=== PATIENT | female | born 1935 | race Caucasian/White ===

== ENCOUNTER 2017-01-12 19:43 | Inpatient (IN) | payer MEDICARE, OTHER ==
[~2017-01-12] VITALS: Ht 157.5 cm; Wt 58.0 kg
[~2017-01-12 19:43] MED LIST: AMLODIPINE PO; ASPI-664 PO; FLONASE; LORA10TA PO; LOVAZA PO; NEXIUM PO; OLME1TAB28 PO; PROPANOLOL; ZOCOR PO; [UNRECOGNIZED DRUG - CODE] PO
[2017-01-12] MEDS ORDERED: SOD CHLORIDE 0.9% 1,000 ML IV STA (20:31)
[2017-01-12 20:49] LABS: BASOPHILS % 0.5 % (0.0-2.0); EOSINOPHILS % 0.3 % (0.0-7.0); HEMATOCRIT 41.1 % (37.0-47.0); HEMOGLOBIN 13.8 g/dl (12.0-16.0); LYMPHOCYTES # 1.4 10^3/ul (0.8-2.9); LYMPHOCYTES % 15.6 % (15.0-51.0); MEAN CORPUSCULAR HEMOGLOBIN 29.9 pg (29.0-33.0); MEAN CORPUSCULAR HGB CONC 33.6 g/dl (32.0-37.0); MEAN CORPUSCULAR VOLUME 89.2 fl (82.0-101.0); MEAN PLATELET VOLUME 11.1 fl (7.4-10.4); MONOCYTES % 11.9 % (0.0-11.0); NEUTROPHIL # 6.2 10^3/ul (1.6-7.5); NEUTROPHILS % 71.2 % (39.0-77.0); PLATELET COUNT 218 10^3/UL (140-415); RED BLOOD COUNT 4.61 10^6/ul (4.20-5.40); RED CELL DISTRIBUTION WIDTH 14.6 % (11.5-14.5); WHITE BLOOD COUNT 8.7 10^3/ul (4.8-10.8)
[2017-01-12 21:04] LABS: INR 1.16; PROTIME 14.9 Sec (12.2-14.2); PT RATIO 1.2
[2017-01-12 21:05] LABS: PARTIAL THROMBOPLASTIN TIME 30.2 Sec (25.0-35.0)
[2017-01-12 21:17] LABS: ALANINE AMINOTRANSFERASE 71 IU/L (13-69); ALBUMIN/GLOBULIN RATIO 1.29; ALKALINE PHOSPHATASE 221 IU/L (42-121); ANION GAP 20 (8-16); ASPARTATE AMINO TRANSFERASE 117 IU/L (15-46); BILIRUBIN,INDIRECT 1.4 mg/dl (0-1.1); BILIRUBIN,TOTAL 1.5 mg/dl (0.2-1.3); BLOOD UREA NITROGEN 18 mg/dl (7-20); CALCIUM 9.2 mg/dl (8.4-10.2); CARBON DIOXIDE 23 mmol/L (21-31); CHLORIDE 100 mmol/L (97-110); GLUCOSE 104 mg/dl (70-220); POTASSIUM 3.7 mmol/L (3.5-5.1); SODIUM 139 mmol/L (135-144); TOTAL PROTEIN 7.1 g/dl (6.1-8.1)
[2017-01-12 21:29] LABS: TROPONIN-I < 0.012 ng/ml (0.00-0.12)
[2017-01-12] MEDS ORDERED: ERGO500037 PO (21:45)
[2017-01-12] MEDS ORDERED: LORA0.5T PO (21:45)
[2017-01-12] MEDS ORDERED: ISOS30TA5 PO (21:46)
[2017-01-12] MEDS ORDERED: VALS160T20 PO (21:47)
[2017-01-12] MEDS ORDERED: NITR12SP TL (21:47)
[2017-01-12] MEDS ORDERED: DULO30CA47 PO (21:49)
[2017-01-12] MEDS ORDERED: OMEG1CAP2 PO (21:50)
[2017-01-12 22:20] VITALS: TEMP 98.3
--- NOTE | 2017-01-12 23:41 | RADRPT ---
PROCEDURE: Chest. CLINICAL INDICATION: Chest pain. TECHNIQUE: Single frontal view of the chest was obtained. COMPARISON: 07/20/2013. FINDINGS: The cardiac silhouette is enlarged. The aortic arch is calcified. There is no focal consolidation, vascular congestion or pleural effusion. There is no pneumothorax. There is an old fracture of the right posterior lateral seventh rib. IMPRESSION: Mild cardiomegaly and aortic atherosclerosis. .Jorge Farias MD, MD Date Time Electronically viewed and signed by .Jorge Farias MD, on 01/12/2017 23:41 .T/
--- NOTE | 2017-01-12 23:46 | RADRPT ---
PROCEDURE: CT Brain without contrast. CLINICAL INDICATION: Headache. TECHNIQUE: A CT of the brain was performed on a multislice detector CT scanner utilizing axial sec tions from the skull base through the vertex without contrast. Images were reviewed on a [employer] PACS workstation. Exam CTDlvol = 44 mGy and DLP = 630 mGy-cm. One of the following 3 dose red uction techniques were used: Automated exposure control; adjustment of the mA and/or kV according to patient size; or use of iterative reconstruction technique. COMPARISON: None available FINDINGS: There is age appropriate generalized peripheral atrophy. Ventricles are symmetric and mildly promin ent, suggesting component of communicating hydrocephalus. There is no midline shift. There is conf luent supratentorial periventricular and subcortical white matter hypodensities. There is no defini te acute stroke. There is no mass lesion. There is no intracranial hemorrhage or abnormal extra-ax ial fluid collection. Visualized paranasal sinuses are clear. IMPRESSION: 1. No acute stroke or hemorrhage. 2. Nonspecific white matter changes most commonly seen with microvascular ischemic disease. 3. Generalized atrophy. Slightly disproportionate degree of diffuse ventricular enlargement relati ve atrophy white matter disease. A component of communicating hydrocephalus cannot be excluded. RPTAT: HMVK .Evans Griffin MD, Date Time Electronically viewed and signed by .Evans Griffin MD, on 01/12/2017 23:46 .K/
[2017-01-13] MEDS ORDERED: HALOPERIDOL 5 MG INJ IV ONE (00:30)
--- NOTE | 2017-01-13 00:44 | RADRPT ---
PROCEDURE: US Abdomen (right upper quadrant). CLINICAL INDICATION: Pain. TECHNIQUE: Multiple real-time longitudinal and transverse images of the right upper quadrant of th e abdomen were acquired utilizing a curved array transducer. Images were reviewed on a high-resoluti on PACS workstation. COMPARISON: None FINDINGS: The liver is enlarged measuring 19.2 cm. Liver is diffusely heterogeneous with appearance suggestiv e of a numerous focal intrahepatic masses. A dominant mass in the right lobe liver 9.2 x 8.3 cm is present. The gallbladder is not visualized. No intra or extrahepatic biliary dilatation is seen. T he common bile duct measures 3.9 mm in maximal dimension. Pancreas is obscured by bowel gas. No fr ee fluid is identified. The right kidney measures 10.8 cm in length. There is normal echogenicity within the right kidney. There is no perinephric fluid collection. No hydronephrosis, mass, or calculus is seen. IMPRESSION: 1. Large heterogeneous liver appearance suggests multiple masses, largest 9.2 x 0.3 cm. Appearance is concerning for metastatic disease. Correlation contrast enhanced CT of the abdomen pelvis is arlene mmended. 2. Gallbladder not identified. No evidence for biliary obstruction. 3. Pancreas not visualized. RPTAT: HMVK .Evans Griffin MD, Date Time Electronically viewed and signed by .Evans Griffin MD, on 01/13/2017 00:44 .K/
[2017-01-13] MEDS ORDERED: LORAZEPAM 2 MG INJ IV ONE (01:00)
[2017-01-13] MEDS ORDERED: SOD CHLORIDE 0.9% 100 ML ONE (01:10)
[2017-01-13] MEDS ORDERED: IOHEXOL 300MG/ML 150 ML BTL ONE (01:10)
--- NOTE | 2017-01-13 01:41 | RADRPT ---
PROCEDURE: CT abdomen and pelvis with intravenous contrast. CLINICAL INDICATION: Pain. TECHNIQUE: CT of the abdomen/pelvis was performed utilizing axial images with reconstructions in s agittal and coronal planes after uneventful administration of 100 cc Omnipaque 300. The administered radiation dose is CTDI 17 mGy, DLP 983 mGy-cm. COMPARISON: No pertinent prior examinations were submitted for comparison. FINDINGS: Visualized Chest: There is moderate cardiomegaly. Coronary artery and cardiac valvular calcificatio ns are noted. A mildly enlarged pericardial lymph node is noted anteriorly. Abdomen: The spleen, gallbladder,and adrenal glands are unremarkable. Numerous masses are noted throughout the liver with enlargement of the liver. There is dilatation of the pancreatic duct throughout the distal body and tail of the pancreas. There is atrophy of the distal body and tail of the pancreas a s well. There is dilatation of the common bile duct measuring up to 10 mm. The kidneys are without hydronephrosis. No definite urinary calculi are seen. A small, partially ex ophytic left renal cyst is noted. Some parapelvic cysts are noted within the left kidney is well. There is no evidence of bowel obstruction. The appendix is normal. No intra-abdominal free air is seen. Numerous diverticula are noted along the descending and sigmoid colon without evidence of div erticulitis. There is no evidence of intra-abdominal adenopathy or free fluid. Vascular calcifications are noted within the aorta and its branches. Pelvis: There is no evidence of pelvic adenopathy. The uterus and ovaries are without enlargement. The uri nary bladder is unremarkable. There is trace pelvic free fluid. Osseous structures: Unremarkable. IMPRESSION: Numerous large and small liver lesions most compatible with metastatic disease. Colonic diverticulosis. Left renal cysts. Atrophy and dilatation of the pancreatic duct within the distal body and tail, possibly due to chron ic pancreatitis. Dilated common bile duct. RPTAT: HIKT .Daniel Murillo MD, Date Time Electronically viewed and signed by .Daniel Murillo MD, on 01/13/2017 01:41 .T/
--- NOTE | 2017-01-13 02:05 | ERA ---
ER Documentation Chief Complaint Date/Time DATE: 01/13/17 TIME: 02:03 Chief Complaint weakness progressing x 10 days, worse today, adds c/o CP upon EMS arrival HPI -year-old female with progressive weakness for the past 10 days per the family at the bedside. Also complaining of intermittent abdominal pain and vomiting. Patient is demented at baseline. History is per family at the bedside. ROS All systems reviewed and are negative except as per history of present illness. Medications Home Meds Reported Medications [place]-3 Acid Ethyl Esters (Lovaza) 1 Gm Capsule, 2 GM PO BID, CAP 01/12/17 Duloxetine Hcl* (Duloxetine Hcl*) 30 Mg Capsule.dr, 30 MG PO DAILY, #30 CAP 01/12/17 Valsartan* (Diovan*) 160 Mg Tablet, 160 MG PO DAILY, TAB 01/12/17 Nitroglycerin* (Nitroglycerin* [place]) 400 Mcg/[place], 1 SPRAY TL Q5M Y for CHEST PAIN, SPRAY 01/12/17 Isosorbide Mononitrate* (Isosorbide Mononitrate*) 30 Mg Tab.er.24h, 30 MG PO BID , TAB 01/12/17 Lorazepam* (Lorazepam*) 0.5 Mg Tablet, 0.5 MG PO HS Y for ANXIETY, TAB 01/12/17 Ergocalciferol (Vitamin D2) (VITAMIN D2) 50,000 Unit Capsule, 92088 UNIT PO Q7D , CAP 01/12/17 Discontinued Reported Medications Calcium Carbonate/Vitamin D3 ([place] Calcium 500+D Tab) 1 Tab Tablet, 1 TAB PO BID 07/20/13 [Flonase] No Conflict Check 07/20/13 [Propanolol] No Conflict Check, 80 MG DAILY 07/20/13 [Lovaza] No Conflict Check, 1 TAB PO BID 07/20/13 Olmesartan-Hydrochlorothiazide (Benicar HCT) 1 Tab Tablet, 1 TAB PO DAILY 07/20/13 Aspirin (Aspirin) 81 Mg Tablet.dr, 81 MG PO DAILY 07/20/13 [Amlodipine] No Conflict Check, 10 MG PO DAILY 07/20/13 [Nexium] No Conflict Check, 40 MG PO DAILY 07/20/13 [Zocor] No Conflict Check, 20 MG PO DAILY 07/20/13 Loratadine (Loratadine) 10 Mg Tablet, 10 MG PO 2/13/14 Allergies Allergies: Coded Allergies: No Known Allergy (Unverified , 01/12/17) PMhx/Soc History of Surgery: Yes (HOLECYSTECTOMY) Anesthesia Reaction: No Hx Neurological Disorder: No Hx Respiratory Disorders: No Hx Cardiac Disorders: Yes (htn, afib) Hx Psychiatric Problems: No Hx Miscellaneous Medical Probl: No Hx Alcohol Use: No Hx Substance Use: No Hx Tobacco Use: No Smoking Status: Never smoker Physical Exam Vitals Vital Signs Date Time Temp Pulse Resp B/P Pulse Ox O2 Delivery O2 Flow Rate FiO2 01/13/17 01:58 89 17 129/88 99 Room Air 01/13/17 01:03 97.8 104 17 133/98 99 01/13/17 00:11 97 17 132/110 99 Room Air 01/12/17 22:20 98.3 78 17 150/78 100 Room Air 01/12/17 20:01 98.3 89 20 129/79 96 Physical Exam Const: [] Head: Atraumatic Eyes: Normal Conjunctiva ENT: Normal External Ears, Nose and Mouth. Neck: Full range of motion..~ No meningismus. Resp: Clear to auscultation bilaterally Cardio: Regular rate and rhythm, no murmurs Abd: Soft, non tender, non distended. Normal bowel sounds Skin: No petechiae or rashes Back: No midline or flank tenderness Ext: No cyanosis, or edema Neur: Awake and alert Psych: Normal Mood and Affect Result Diagram: 01/12/17 2030 01/12/17 2030 Results 24 hrs Laboratory Tests Test 01/12/17 20:30 White Blood Count 8.710^3/ul Red Blood Count 4.6110^6/ul Hemoglobin 13.8g/dl Hematocrit 41.1% Mean Corpuscular Volume 89.2fl Mean Corpuscular Hemoglobin 29.9pg Mean Corpuscular Hemoglobin Concent 33.6g/dl Red Cell Distribution Width 14.6% Platelet Count 95592^3/UL Mean Platelet Volume 11.1fl Neutrophils % 71.2% Lymphocytes % 15.6% Monocytes % 11.9% Eosinophils % 0.3% Basophils % 0.5% Nucleated Red Blood Cells % 0.0/100WBC Neutrophils # 6.210^3/ul Lymphocytes # 1.410^3/ul Monocytes # 1.010^3/ul Eosinophils # 0.010^3/ul Basophils # 0.010^3/ul Nucleated Red Blood Cells # 0.010^3/ul Prothrombin Time 14.9Sec Prothrombin Time Ratio 1.2 INR International Normalized Ratio 1.16 Activated Partial Thromboplast Time 30.2Sec Sodium Level 139mmol/L Potassium Level 3.7mmol/L Chloride Level 100mmol/L Carbon Dioxide Level 23mmol/L Anion Gap 20 Blood Urea Nitrogen 18mg/dl Creatinine 0.70mg/dl Glucose Level 104mg/dl Lactic Acid Level 1.7mmol/L Calcium Level 9.2mg/dl Total Bilirubin 1.5mg/dl Direct Bilirubin 0.10mg/dl Indirect Bilirubin 1.4mg/dl Aspartate Amino Transf (AST/SGOT) 117IU/L Alanine Aminotransferase (ALT/SGPT) 71IU/L Alkaline Phosphatase 221IU/L Troponin I < 0.012ng/ml Total Protein 7.1g/dl Albumin 4.0g/dl Globulin 3.10g/dl Albumin/Globulin Ratio 1.29 Lipase 567U/L Current Medications Medications (Trade) Dose Ordered Sig/Deyanira Route PRN Reason Start Time Stop Time Status Last Admin Dose Admin Sodium Chloride (NS) 1,000 ml @ 1,000 mls/hr Q1H STAT IV 01/12/17 20:31 01/12/17 21:30 DC 01/12/17 21:03 Haloperidol (Haldol) 5 mg ONCE ONCE IV 01/13/17 00:30 01/13/17 00:31 DC 01/13/17 00:25 Lorazepam 2 mg 2 mg ONCE ONCE IV 01/13/17 01:00 01/13/17 01:01 DC 01/13/17 00:58 Sodium Chloride (NS) 100 ml @ ud STK-MED ONCE .ROUTE 01/13/17 01:10 01/13/17 01:11 DC 01/13/17 01:30 Iohexol (Omnipaque 300mg/ ml) 150 ml STK-MED ONCE .ROUTE 01/13/17 01:10 01/13/17 01:11 DC 01/13/17 01:30 Procedures/MDM EKG: Rate/Rhythm: [Normal Sinus Rhythm] QRS, ST, T-waves: [No changes consistent w/ acute ischemia] Impression: [No evidence of ischemia or arrhythmia] Chest X-ray 1V Interpreted by me: Soft Tissue: No acute abnormalities Bones: No acute abnormalities Mediastinum/Cardiac Silhouette/Lungs: [No acute abnormalities] Medical decision-makin-year-old female who has multiple metastatic lesions in her liver causing biliary obstruction. Patient will be admitted to Dr. Parsons who is on-call. Departure Diagnosis: Primary Impression: Metastatic cancer Additional Impression: Hyperbilirubinemia Condition: Serious KULDIP PRESTON Jan 13, 2017 02:05
[2017-01-13] MEDS ORDERED: ACETAMINOPHEN 325 MG TAB PO PRN (02:30)
[2017-01-13 02:45] VITALS: BP 153/75; PULSE 81; RESP 17
[2017-01-13 03:27] VITALS: BP 153/75; RESP 20
[2017-01-13] MEDS: D5W-0.45 NACL + KCL 40 MEQ 1,000 ML IV SCH ×2 (06:01→16:07)
[2017-01-13 08:00] VITALS: BP 151/69; RESP 19
[2017-01-13] MEDS: FISH OIL 1,000 MG CAP PO SCH ×2 (11:00→20:49)
[2017-01-13] MEDS: DULOXETINE 30 MG CAP DR PO SCH (11:00)
[2017-01-13] MEDS: VALSARTAN 160 MG TAB PO SCH (11:00)
[2017-01-13] MEDS: ISOSORBIDE MONONITRATE(SR)30 MG TAB PO SCH ×2 (11:00→20:49)
--- NOTE | 2017-01-13 11:35 | HP ---
Date/Time of Note Date/Time of Note DATE: 01/13/17 TIME: 11:14 Assessment/Plan VTE Prophylaxis VTE Prophylaxis Intervention: SCD's Lines/Catheters IV [facility] Type ([facility] Peripheral IV Urinary Cath still in place: Yes Reason Cath still needed: other (indicate) (Monitor urine output) Assessment/Plan Assessment/Plan 81-year-old female with: 1. Poor p.o. intake, generalized weakness, epigastric/abdominal pain with finding on CAT scan of pancreatitis, now a pancreatic duct, common bile duct dilatation and multiple liver masses. Patient already status post cholecystectomy. I will have a GI consult and clarify if MRCP is needed but looks like patient most likely needs a ERCP with biopsy. Given the concerns for metastatic disease, CAT scan of the chest has been ordered. CAT scan of the head does not show any masses. 2. Dehydration: Again difficult p.o. intake this morning, agree with IV fluids for now. 3. Pancreatitis based on CAT scan findings and also elevated lipase. Patient on n.p.o. status except for medications for now. However she is observed to choke on the fluids, she may need to go full n.p.o., some of her medication to be converted to IV 4. Hypertension: We will start as needed medications if cannot tolerate any p.o. 5. Hyperlipidemia: Medications on hold 6. Mild dementia: Likely slightly exacerbated currently with acute findings. Continue outpatient medication as tolerated. Monitor. Prophylaxis: SCDs for DVT prophylaxis, Pepcid for GI prophylaxis Disposition: GI consult, follow-up CAT scan of the chest to rule out metastatic disease to the lung. HPI/ROS Admit Date/Time Admit Date/Time Jan 13, 2017 at 02:01 Hx of Present Illness Chief complaint: Generalized weakness, abdominal pain History of presenting illness: This is a 81-year-old female with mild dementia, hypertension no previous history of any malignancies who was brought into the emergency department by her son with reported increased generalized weakness over the past 10 days now, decreased p.o. intake episodes of nausea and vomiting over the past few days. The patient herself is slightly confused, she is [place]-speaking only. The son at the bedside is giving the history of presenting illness. According to the son the patient has been in her usual state of health until approximately 10 days ago, she started having a generalized weakness that has worsened over the past 10 days to a point where she is almost bedbound. She has decreased p.o. intake, she eats very small amounts and if forced to eat she started being nauseous and throwing up. She had one episodes of emesis which was nonbloody at home. She was complaining of pain around her upper upper abdomen and or chest at home according to the son, it was difficult to pinpoint exactly which area. On exam today and while asking to the patient she definitely has epigastric tenderness along with upper abdominal tenderness bilaterally. They deny any fevers or chills. Apparently the patient did see her primary care physician not too long ago and had blood work. They were told to come back for additional blood work but they are unsure as to why. During the workup in the emergency department, patient was found to have pancreatitis, on the CAT scan of the abdomen and pelvis she does have liver masses and no narrowing of the pancreatic duct along with the common bile duct dilatation. Gastroenterology will be consulted, CAT scan of the chest will be obtained for further metastatic workup. The son at the bedside has been fully updated regarding the current suspected diagnosis of metastatic malignancy and the need for additional workup. ROS Subjective hx not possible: other ([place]-speaking,) Constitutional: disoriented, fatigue, nausea, poor po Respiratory: no complaints Cardiovascular: no complaints Gastrointestinal: decreased appetite, nausea, pain (Epigastric and bilateral upper abdomen), vomiting Genitourinary: no complaints Musculoskeletal: no complaints Skin: no complaints Neurologic: no complaints Endocrine: no complaints PMH/Family/Social Past Medical History Mild dementia Hypertension Hyperlipidemia According to son patient with no previous cardiac disease or coronary artery disease diagnosis Also no family history of cancer or personal history of cancer Past Surgical History Status post cholecystectomy remotely in the 70s Family History Significant Family History: no pertinent family hx Social History Alcohol Use: none Smoking Status: Never smoker Drug Use: none Exam/Review of Systems Vital Signs Vitals Vital Signs Date Time Temp Pulse Resp B/P Pulse Ox O2 Delivery O2 Flow Rate FiO2 01/13/17 08:00 98.0 71 19 151/69 98 01/13/17 02:45 Room Air Intake and Output 01/12/17 01/12/17 01/13/17 15:00 23:00 07:00 Intake Total 1100 ml Output Total 300 ml Balance 800 ml Exam Constitutional: other (Awake, lethargic) Psych: confusion Neck: non-tender, supple Respiratory: clear to auscultation, normal air movement Cardiovascular: nl pulses, regular rate and rhythm Gastrointestinal: soft, tender (Epigastric, RUQ>LUQ) Musculoskeletal: nl extremities to inspection Extremities: normal pulses, other (No edema, clubbing or cyanosis) 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, confused, lethargic, other (Generalized weakness) Labs Result Diagram: 01/12/17 2030 01/12/17 2030 Medications Medications Home medications: See admission medication reconciliation Current Medications Duloxetine HCl (Cymbalta) 30 mg DAILY PO Last administered on 01/13/17 11:00; Admin Dose 30 MG; Start 01/13/17 at 09:00 Isosorbide Mononitrate (Imdur) 30 mg BID PO Last administered on 01/13/17 11:00 ; Admin Dose 30 MG; Start 01/13/17 at 09:00 Valsartan (Diovan) 160 mg DAILY PO Last administered on 01/13/17 11:00; Admin Dose 160 MG; Start 01/13/17 at 09:00 Fish Oil (Fish Oil) 2,000 mg BID PO Last administered on 01/13/17 11:00; Admin Dose 2,000 MG; Start 01/13/17 at 09:00 Quetiapine Fumarate (Seroquel) 25 mg Q4H PRN PO agitation; Start 01/13/17 at 02: 30 Haloperidol 1 mg 1 mg Q4H PRN IM agitation; Start 01/13/17 at 02:30 Potassium Chloride/Dextrose/ Sod Cl (D5-1/2ns + KCl 40 Meq) 1,000 ml @ 100 mls/ hr Q10H IV Last administered on 01/13/17 06:01; Admin Dose 100 MLS/HR; Start at 02:30 Acetaminophen (Tylenol Tab) 650 mg Q4H PRN PO pain/fever; Start 01/13/17 at 02: 30 Morphine Sulfate (morphine) 2 mg Q2H PRN IV pain; Start 01/13/17 at 02:30 Ondansetron HCl (Zofran Inj) 4 mg Q4H PRN IV nausea; Start 01/13/17 at 02:30 Procedures Procedures PROCEDURE: Chest. CLINICAL INDICATION: Chest pain. TECHNIQUE: Single frontal view of the chest was obtained. COMPARISON: 07/20/2013. FINDINGS: The cardiac silhouette is enlarged. The aortic arch is calcified. There is no focal consolidation, vascular congestion or pleural effusion. There is no pneumothorax. There is an old fracture of the right posterior lateral seventh rib. IMPRESSION: Mild cardiomegaly and aortic atherosclerosis. .Jorge Farias MD, Date Time Electronically viewed and signed by .Jorge Farias MD, MD on 01/12/2017 23:41 PROCEDURE: CT Brain without contrast. CLINICAL INDICATION: Headache. TECHNIQUE: A CT of the brain was performed on a multislice detector CT scanner utilizing axial sections from the skull base through the vertex without contrast. Images were reviewed on a high-resolution PACS workstation. Exam CTDlvol = 44 mGy and DLP = 630 mGy-cm. One of the following 3 dose reduction techniques were used: Automated exposure control; adjustment of the mA and/or kV according to patient size; or use of iterative reconstruction technique. COMPARISON: None available FINDINGS: There is age appropriate generalized peripheral atrophy. Ventricles are symmetric and mildly prominent, suggesting component of communicating hydrocephalus. There is no midline shift. There is confluent supratentorial periventricular and subcortical white matter hypodensities. There is no definite acute stroke. There is no mass lesion. There is no intracranial hemorrhage or abnormal extra-axial fluid collection. Visualized paranasal sinuses are clear. IMPRESSION: 1. No acute stroke or hemorrhage. 2. Nonspecific white matter changes most commonly seen with microvascular ischemic disease. 3. Generalized atrophy. Slightly disproportionate degree of diffuse ventricular enlargement relative atrophy white matter disease. A component of communicating hydrocephalus cannot be excluded. RPTAT: HMVK .Evans Griffin MD, Date Time Electronically viewed and signed by .Evans Griffin MD, on 01/12/2017 23:46 PROCEDURE: US Abdomen (right upper quadrant). CLINICAL INDICATION: Pain. TECHNIQUE: Multiple real-time longitudinal and transverse images of the right upper quadrant of the abdomen were acquired utilizing a curved array transducer. Images were reviewed on a high-resolution PACS workstation. COMPARISON: None FINDINGS: The liver is enlarged measuring 19.2 cm. Liver is diffusely heterogeneous with appearance suggestive of a numerous focal intrahepatic masses. A dominant mass in the right lobe liver 9.2 x 8.3 cm is present. The gallbladder is not visualized. No intra or extrahepatic biliary dilatation is seen. The common bile duct measures 3.9 mm in maximal dimension. Pancreas is obscured by bowel gas. No free fluid is identified. The right kidney measures 10.8 cm in length. There is normal echogenicity within the right kidney. There is no perinephric fluid collection. No hydronephrosis, mass, or calculus is seen. IMPRESSION: 1. Large heterogeneous liver appearance suggests multiple masses, largest 9.2 x 0.3 cm. Appearance is concerning for metastatic disease. Correlation contrast enhanced CT of the abdomen pelvis is recommended. 2. Gallbladder not identified. No evidence for biliary obstruction. 3. Pancreas not visualized. RPTAT: HMVK .Evans Griffin MD, MD Date Time Electronically viewed and signed by .Evans Griffin MD, MD on 01/13/2017 00:44 PROCEDURE: CT abdomen and pelvis with intravenous contrast. CLINICAL INDICATION: Pain. TECHNIQUE: CT of the abdomen/pelvis was performed utilizing axial images with reconstructions in sagittal and coronal planes after uneventful administration of 100 cc Omnipaque 300. The administered radiation dose is CTDI 17 mGy, DLP 983 mGy-cm. COMPARISON: No pertinent prior examinations were submitted for comparison. FINDINGS: Visualized Chest: There is moderate cardiomegaly. Coronary artery and cardiac valvular calcifications are noted. A mildly enlarged pericardial lymph node is noted anteriorly. Abdomen: The spleen, gallbladder,and adrenal glands are unremarkable. Numerous masses are noted throughout the liver with enlargement of the liver. There is dilatation of the pancreatic duct throughout the distal body and tail of the pancreas. There is atrophy of the distal body and tail of the pancreas as well. There is dilatation of the common bile duct measuring up to 10 mm. The kidneys are without hydronephrosis. No definite urinary calculi are seen. A small, partially exophytic left renal cyst is noted. Some parapelvic cysts are noted within the left kidney is well. There is no evidence of bowel obstruction. The appendix is normal. No intra- abdominal free air is seen. Numerous diverticula are noted along the descending and sigmoid colon without evidence of diverticulitis. There is no evidence of intra-abdominal adenopathy or free fluid. Vascular calcifications are noted within the aorta and its branches. Pelvis: There is no evidence of pelvic adenopathy. The uterus and ovaries are without enlargement. The urinary bladder is unremarkable. There is trace pelvic free fluid. Osseous structures: Unremarkable. IMPRESSION: Numerous large and small liver lesions most compatible with metastatic disease. Colonic diverticulosis. Left renal cysts. Atrophy and dilatation of the pancreatic duct within the distal body and tail, possibly due to chronic pancreatitis. Dilated common bile duct. RPTAT: HIKT .Daniel Murillo MD, MD Date Time Electronically viewed and signed by .Daniel Murillo MD, MD on 01/13/2017 01:41 NASIMA PRICE Jan 13, 2017 11:24
[2017-01-13] MEDS ORDERED: hydrALAzine 20 MG INJ IV PRN (12:00)
[2017-01-13 12:57] LABS: AMYLASE 118 U/L (11-123)
[2017-01-13 13:27] LABS: CANCER ANTIGEN 125 35.6 U/ml (0.0-35.0); CARCINOEMBRYONIC ANTIGEN 1.9 ng/ml (0.0-5.0)
[2017-01-13 19:15] LABS: CREATINE KINASE 71 IU/L (23-200)
[2017-01-13 19:30] LABS: CK-MB 1.02 ng/ml (0.0-2.4)
[2017-01-13 19:33] LABS: TROPONIN-I < 0.012 ng/ml (0.00-0.12)
[2017-01-13 20:01] VITALS: BP 145/70; RESP 20
[2017-01-13] MEDS: QUETIAPINE 25 MG TAB PO PRN (23:39)
--- NOTE | 2017-01-13 23:55 | RADRPT ---
PROCEDURE: MRCP. CLINICAL INDICATION: 81-year-old female. Metastatic cancer. Dilated pancreatic duct. Negative s urgical history and negative for trauma. TECHNIQUE: An MRCP was performed without intravenous contrast. Axial and coronal T2, axial T2 with fat saturation, and coronal T2 3D RST images were obtained. 3-D coronal rotating MIP images of the biliary tree were also generated. COMPARISON: CT abdomen pelvis January 13, 2017 FINDINGS: Limited evaluation of the lung bases demonstrates no pleural effusion. There is a hepatomegaly with multiple mildly T2 hyperintense masses replacing most of the liver par enchyma in the right greater than left lobes in keeping with metastatic disease. Dominant mass seen inferior right lobe segment 5/6 measures 7.3 cm. Gallbladder is absent. Mild prominence of the intrahepatic and extrahepatic bile ducts is within no rmal limits post cholecystectomy. Common bile duct measures up to 1 cm and tapers normally to the a mpulla. There is marked dilatation of the main pancreatic duct in the distal body and tail measuring up to 1 .2 cm with parenchymal atrophy. There is an abrupt caliber change in the pancreatic body where there is concern for an obstructing mass measuring 1.3 x 2.1 cm. Evaluation is limited without intraveno us contrast The downstream pancreatic duct in pancreatic head is normal caliber. Spleen and adrenal glands are unremarkable. There are left renal parenchymal and parapelvic cysts. Negative for hydronephrosis. Abdominal aorta has normal caliber. Negative for enlarged lymphadenopathy in the upper abdomen. En larged epiphrenic lymph node seen on CT is not seen with MRI for technical reasons. Bowel loops are decompressed. Trace of free intraperitoneal fluid. Mild body wall edema. Multilevel degenerative changes in the spine. IMPRESSION: Obstruction of main pancreatic duct in the body of pancreas with marked upstream pancreatic duct dil atation and parenchymal atrophy. Cause for obstruction as likely 1.3 x 2.1 cm mass in the pancreati c neck and body concerning for pancreatic cancer. Evaluation is limited without intravenous contras t. Recommend further evaluation with dedicated multi phase enhanced pancreas CT or MRI. Tissue is required for definitive diagnosis. Multiple hepatic masses and hepatomegaly are in keeping with metastases. Small volume free intraperitoneal fluid is similar to recent CT. Claudiay Sadro, Physician Date Time Electronically viewed and signed by Ro Saunders, Physician on 01/13/2017 23:54 CS/
[2017-01-14] VITALS (21 sets, daily range): BP systolic 133–176; BP diastolic 68–116; PULSE 65–83; RESP 14–20
[2017-01-14] MEDS: HALOPERIDOL 5 MG INJ IM PRN (01:36)
--- NOTE | 2017-01-14 03:19 | CONS ---
DATE OF ADMISSION: 01/13/2017 DATE OF CONSULTATION: 01/13/[address] Diggs, thank you for asking me to see Mrs. Ye in GI consultation as an outpatient. She is an 81-year-old, [place] female, who is admitted to the hospital because of a history of weakness and tiredness. She was brought to the emergency room for these complaints. In the emergency room, a CAT scan of the abdomen was done, which showed evidence of metastatic disease, mild pancreatitis, and multiple masses were noted in the liver and also dilated common bile duct, dilated pancreatic duct was also noted. The patient, by herself is nonverbal, though she is pretty much unresponsive. The son gives me a history that she has been deteriorating in the past 3 to 4 days, not able to get up, not able to the eat. She is bed-ridden. However, before that she was okay. She had chest pain on admission this time. No nausea. No vomiting. No GI bleeding. No fever. No jaundice. PAST MEDICAL HISTORY: She had a cardiac catheterization for chest pain in 2013. During the cardiac catheterization, she developed V-tach and admitted the ventricular fibrillation. She was resuscitated and discharged after chest compressions were given and she recovered from that. She was discharged the same evening to go home. REVIEW OF SYSTEM: Includes hypertension, dyslipidemia, mild dementia. MEDICATION: Prior to this admission, includes: 1. Isosorbide. 2. Nitroglycerin. 3. Lovaza. 4. Diovan. 5. Lorazepam. 6. Vitamin D2. PHYSICAL EXAMINATION: GENERAL: The patient is an 81-year-old, [place] female, who at this time, is thin built. She is afebrile. She is unresponsive. VITALS: Blood pressure 151/69. Pulse is 79. HEART: Normal heart sounds. LUNGS: Normal breath sounds. ABDOMEN: Showed a soft abdomen with no palpable masses. No tenderness. No distention. LABORATORY: WBC count 8700, hemoglobin 13.8, platelet count 218,000. The chemistry shows bilirubin 1.5. AST 117, ALT 71, alk phos is 221. Lipase is 567. It came down to 326. 118, CA-19-9 is 201. CA-125 antigen is 35.6. The CT scan of the abdomen shows evidence of multiple masses in the liver. Common bile duct is 10 mm. Pancreatic duct is also dilated. Colonic diverticulosis and left renal cyst noted. The ultrasound of the abdomen shows evidence of multiple masses in the liver. Gallbladder is not identified. Pancreas was not visualized. IMPRESSION: The patient is presenting with a history of chest pain, probably secondary to multiple metastatic liver lesions. She has got a biliary obstruction probably based on probably multiple masses in the liver, may be yumiko hepatis masses. Differential carcinoma of the head of the pancreas is a possibility, although the CA-19-9 is not extremely high. Other problems hypertension, dyslipidemia, and diverticulosis. PLAN: At this time, recommend cardiac clearance, and then the ERCP will be performed to replace a stent into the bile duct. Once again, doctor, thank you for this consultation. Dictated By: Cal Sampson MD /[email or web address]/john /Document#: [id number] CC: Amando Morris MD;*End*
[2017-01-14] MEDS: D5W-0.45 NACL + KCL 40 MEQ 1,000 ML IV SCH ×3 (03:32→20:47)
[2017-01-14 05:15] LABS: BASOPHILS % 0.1 % (0.0-2.0); EOSINOPHILS % 0.1 % (0.0-7.0); HEMATOCRIT 36.6 % (37.0-47.0); LYMPHOCYTES # 1.1 10^3/ul (0.8-2.9); MEAN CORPUSCULAR HEMOGLOBIN 29.5 pg (29.0-33.0); MEAN CORPUSCULAR HGB CONC 32.8 g/dl (32.0-37.0); MEAN CORPUSCULAR VOLUME 89.9 fl (82.0-101.0); MEAN PLATELET VOLUME 11.2 fl (7.4-10.4); MONOCYTE # 0.9 10^3/ul (0.3-0.9); MONOCYTES % 11.1 % (0.0-11.0); NEUTROPHIL # 5.8 10^3/ul (1.6-7.5); NEUTROPHILS % 74.2 % (39.0-77.0); PLATELET COUNT 193 10^3/UL (140-415); RED BLOOD COUNT 4.07 10^6/ul (4.20-5.40); RED CELL DISTRIBUTION WIDTH 14.9 % (11.5-14.5); WHITE BLOOD COUNT 7.8 10^3/ul (4.8-10.8)
[2017-01-14 05:43] LABS: MAGNESIUM 1.6 mg/dl (1.7-2.5); PHOSPHORUS 2.5 mg/dl (2.5-4.9)
[2017-01-14 05:48] LABS: CREATINE KINASE 122 IU/L (23-200)
[2017-01-14 05:50] LABS: ALBUMIN 3.2 g/dl (3.3-4.9); ALBUMIN/GLOBULIN RATIO 1.14; BILIRUBIN,INDIRECT 1.2 mg/dl (0-1.1); BILIRUBIN,TOTAL 1.2 mg/dl (0.2-1.3); CALCIUM 8.4 mg/dl (8.4-10.2); CREATININE 0.53 mg/dl (0.44-1.00); POTASSIUM 4.2 mmol/L (3.5-5.1)
[2017-01-14 06:04] LABS: TROPONIN-I < 0.012 ng/ml (0.00-0.12)
--- NOTE | 2017-01-14 08:19 | RADRPT ---
PROCEDURE: CT Chest without IV contrast. CLINICAL INDICATION: Shortness of breath, possible lung masses. TECHNIQUE: The study was performed utilizing a multidetector CT scanner. Direct axial sections wer e obtained from the thoracic inlet through the upper abdomen without intravenous contrast material a nd reformatted at 2.5 mm. Lung window reformats were created. Coronal and sagittal reformations wer e obtained. The images were reviewed on a PACS workstation. DLP = 205.1 mGy-cm.CTDiVol = 6.5 mGy. COMPARISON: CT abdomen January 13, 2017 FINDINGS: Heart size is within normal limits. Coronary artery calcifications are observed. No hilar or media stinal lymphadenopathy is identified. The visualized portions of the inferior thyroid appear unrema rkable. Scattered mild calcified atherosclerosis is noted in the thoracic aorta. The thoracic esopha ayleen appears normal. Minimal dependent atelectasis is noted in both lungs. No lung nodules or masses or visualized. Multiple large masses continue be identified throughout the liver. The remainder of the visualized organs of the superior abdomen are unremarkable. Moderate degenerative changes are seen in the spine. Focal subcutaneous calcification is identified over the lateral right lower chest. The remaining subcutaneous and muscular soft tissues surroundi ng the chest appear unremarkable. IMPRESSION: No visualized lung nodule or mass. Continued presence of multiple masses throughout the liver raising suspicion for malignancy/metastat ic disease. Dependent atelectasis in both lungs. Degenerative changes in the spine and calcified atherosclerosis in the arterial vasculature. RPTAT: AA .Luis Enrique Calderón MD, MD Date Time Electronically viewed and signed by .Luis Enrique Calderón MD, MD on 01/14/2017 08:19 .P/
[2017-01-14] MEDS: FISH OIL 1,000 MG CAP PO SCH ×2 (09:00→20:55)
[2017-01-14] MEDS: DULOXETINE 30 MG CAP DR PO SCH (09:06)
[2017-01-14] MEDS: ISOSORBIDE MONONITRATE(SR)30 MG TAB PO SCH (09:07)
[2017-01-14] MEDS: VALSARTAN 160 MG TAB PO SCH ×2 (09:07→20:57)
[2017-01-14] MEDS ORDERED: MAGNESIUM SULFATE 4 GM/100 ML 100 ML IVPB ONE (11:30)
--- NOTE | 2017-01-14 13:11 | PN ---
Date/Time of Note Date/Time of Note DATE: 01/14/17 TIME: 12:38 Assessment/Plan VTE Prophylaxis VTE Prophylaxis Intervention: SCD's Lines/Catheters IV Catheter Type (from Nrs): Peripheral IV Urinary Cath still in place: Yes Reason Cath still needed: other (indicate) (Monitor urine output) Assessment/Plan Assessment/Plan 81-year-old female with: 1. Poor p.o. intake, generalized weakness, epigastric/abdominal pain with finding on CAT scan of pancreatitis, now a pancreatic duct, common bile duct dilatation and multiple liver masses. Patient already status post cholecystectomy. MRCP showing possible pancreatic mass, with pancreatic duct obstruction Elevated Ca 19-9, concerns for pancreatic malignancy, ERCP pending today hopefully. Patient has been evaluated and cleared by Dr. Barragan from cardiology per GI request. 2. Dehydration: Better p.o. intake at least for medications today, continue IV fluids. 3. Pancreatitis based on CAT scan findings and also elevated lipase and also an MRCP, findings of pancreatic duct obstruction and a probable pancreatic mass. Patient on n.p.o. status except for medications. Pain control with morphine as needed Continue IV fluids 4. Hypertension: Continue current medication in addition of hydralazine as needed. 5. Hyperlipidemia: Medications on hold 6. Mild dementia: Likely slightly exacerbated currently with acute findings. Continue outpatient medication as tolerated. Monitor. Prophylaxis: SCDs for DVT prophylaxis, Pepcid for GI prophylaxis Disposition: Hopefully ERCP to be done today, appreciate recommendations from a GI and cardiology. Subjective 24 Hr Interval Summary Free Text/Dictation Patient complaining of epigastric pain pain all over, she denies nausea, MRCP results noted, patient awaiting ERCP. EKG stable, cardiac enzymes negative, patient has been seen by Dr. Barragan at this time and okay to proceed with ERCP per Dr. Barragan. please refer to his note for further details Exam/Review of Systems Vital Signs Vitals Vital Signs Date Time Temp Pulse Resp B/P Pulse Ox O2 Delivery O2 Flow Rate FiO2 01/14/17 12:21 98.1 100 19 157/90 96 01/13/17 02:45 Room Air Intake and Output 01/13/17 01/13/17 01/14/17 15:00 23:00 07:00 Intake Total 1250 ml 950 ml Output Total 300 ml Balance 1250 ml 650 ml Exam Constitutional: alert, frail, oriented (x2) Respiratory: clear to auscultation, normal air movement Cardiovascular: nl pulses, regular rate and rhythm Gastrointestinal: soft, tender (Epigastric area) Musculoskeletal: nl extremities to inspection Extremities: normal pulses, other (No edema, clubbing or cyanosis) 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, nl mental status (At baseline, dementia), nl speech, other (Generalized weakness) Results Result Diagram: 01/14/17 0429 01/14/17 0429 Results 24 hrs Laboratory Tests Test 01/13/17 18:25 01/14/17 04:29 Creatine Kinase 71 122 Creatine Kinase Index 1.4 1.3 Creatinine Kinase MB (Mass) 1.02 1.60 Troponin I < 0.012 < 0.012 Alpha Fetoprotein 1.47 White Blood Count 7.8 Red Blood Count 4.07 L Hemoglobin 12.0 Hematocrit 36.6 L Mean Corpuscular Volume 89.9 Mean Corpuscular Hemoglobin 29.5 Mean Corpuscular Hemoglobin Concent 32.8 Red Cell Distribution Width 14.9 H Platelet Count 193 Mean Platelet Volume 11.2 H Neutrophils % 74.2 Lymphocytes % 14.0 L Monocytes % 11.1 H Eosinophils % 0.1 Basophils % 0.1 Nucleated Red Blood Cells % 0.0 Neutrophils # 5.8 Lymphocytes # 1.1 Monocytes # 0.9 Eosinophils # 0.0 Basophils # 0.0 Nucleated Red Blood Cells # 0.0 Sodium Level 140 Potassium Level 4.2 Chloride Level 103 Carbon Dioxide Level 24 Anion Gap 17 H Blood Urea Nitrogen 8 # Creatinine 0.53 Glucose Level 150 Calcium Level 8.4 Phosphorus Level 2.5 Magnesium Level 1.6 L Total Bilirubin 1.2 Direct Bilirubin 0.00 Indirect Bilirubin 1.2 H Aspartate Amino Transf (AST/SGOT) 98 H Alanine Aminotransferase (ALT/SGPT) 63 Alkaline Phosphatase 177 H Total Protein 6.0 #L Albumin 3.2 L Globulin 2.80 Albumin/Globulin Ratio 1.14 Medications Medications Current Medications Duloxetine HCl (Cymbalta) 30 mg DAILY PO Last administered on 01/14/17 09:06; Admin Dose 30 MG; Start 01/13/17 at 09:00 Isosorbide Mononitrate (Imdur) 30 mg BID PO Last administered on 01/14/17 09: 07; Admin Dose 30 MG; Start 01/13/17 at 09:00 Valsartan (Diovan) 160 mg DAILY PO Last administered on 01/14/17 09:07; Admin Dose 160 MG; Start 01/13/17 at 09:00 Fish Oil (Fish Oil) 2,000 mg BID PO Last administered on 01/13/17 20:49; Admin Dose 2,000 MG; Start 01/13/17 at 09:00 Quetiapine Fumarate (Seroquel) 25 mg Q4H PRN PO agitation Last administered on 01/13/17 23:39; Admin Dose 25 MG; Start 01/13/17 at 02:30 Haloperidol 1 mg 1 mg Q4H PRN IM agitation Last administered on 01/14/17 01:36 ; Admin Dose 1 MG; Start 01/13/17 at 02:30 Potassium Chloride/Dextrose/ Sod Cl (D5-1/2ns + KCl 40 Meq) 1,000 ml @ 100 mls/ hr Q10H IV Last administered on 01/14/17 03:32; Admin Dose 100 MLS/HR; Start 01/13/17 at 02:30 Acetaminophen (Tylenol Tab) 650 mg Q4H PRN PO pain/fever; Start 01/13/17 at 02: 30 Morphine Sulfate (morphine) 2 mg Q2H PRN IV pain; Start 01/13/17 at 02:30 Ondansetron HCl (Zofran Inj) 4 mg Q4H PRN IV nausea; Start 01/13/17 at 02:30 Hydralazine HCl 10 mg 10 mg Q6H PRN IV ELEVATED BLOOD PRESSURE; Start 01/13/17 at 12:00 Magnesium Sulfate (Magnesium Sulfate 4 Gm/100 ml) 100 ml @ 25 mls/hr ONCE ONCE IVPB Last administered on 01/14/17 12:16; Admin Dose 25 MLS/HR; Start 03/23 at 11:30; Stop 01/14/17 at 15:29 Procedures Procedures PROCEDURE: MRCP. CLINICAL INDICATION: 81-year-old female. Metastatic cancer. Dilated pancreatic duct. Negative surgical history and negative for trauma. TECHNIQUE: An MRCP was performed without intravenous contrast. Axial and coronal T2, axial T2 with fat saturation, and coronal T2 3D RST images were obtained. 3-D coronal rotating MIP images of the biliary tree were also generated. COMPARISON: CT abdomen pelvis January 13, 2017 FINDINGS: Limited evaluation of the lung bases demonstrates no pleural effusion. There is a hepatomegaly with multiple mildly T2 hyperintense masses replacing most of the liver parenchyma in the right greater than left lobes in keeping with metastatic disease. Dominant mass seen inferior right lobe segment 5/6 measures 7.3 cm. Gallbladder is absent. Mild prominence of the intrahepatic and extrahepatic bile ducts is within normal limits post cholecystectomy. Common bile duct measures up to 1 cm and tapers normally to the ampulla. There is marked dilatation of the main pancreatic duct in the distal body and tail measuring up to 1.2 cm with parenchymal atrophy. There is an abrupt caliber change in the pancreatic body where there is concern for an obstructing mass measuring 1.3 x 2.1 cm. Evaluation is limited without intravenous contrast The downstream pancreatic duct in pancreatic head is normal caliber. Spleen and adrenal glands are unremarkable. There are left renal parenchymal and parapelvic cysts. Negative for hydronephrosis. Abdominal aorta has normal caliber. Negative for enlarged lymphadenopathy in the upper abdomen. Enlarged epiphrenic lymph node seen on CT is not seen with MRI for technical reasons. Bowel loops are decompressed. Trace of free intraperitoneal fluid. Mild body wall edema. Multilevel degenerative changes in the spine. IMPRESSION: Obstruction of main pancreatic duct in the body of pancreas with marked upstream pancreatic duct dilatation and parenchymal atrophy. Cause for obstruction as likely 1.3 x 2.1 cm mass in the pancreatic neck and body concerning for pancreatic cancer. Evaluation is limited without intravenous contrast. Recommend further evaluation with dedicated multi phase enhanced pancreas CT or MRI. Tissue is required for definitive diagnosis. Multiple hepatic masses and hepatomegaly are in keeping with metastases. Small volume free intraperitoneal fluid is similar to recent CT. Physician Alize Date Time Electronically viewed and signed by Physician Alize on 01/13/2017 23: 54 DI/ NASIMA PRICE Jan 14, 2017 12:48
--- NOTE | 2017-01-14 13:23 | RADRPT ---
Echocardiogram Report Patient Name: MANFRED ARCINIEGA Gender: Female Date: 1935 Study Date: 14-Jan-2017 Physician Office Nurse: Nataly Kunz DI Location: [id number] Ref. Physician: SHAR PRICE Quality: Good Procedures: Transthoracic echocardiogram with complete 2D, M-Mode, and doppler examination. Indications: Pre-ERCP. 2D/M Mode Doppler Measurement Value Normal Ranges Measurement Value Normal Ranges LVIDd 2D 3.4 3.5 - 5.6 cm LVOT Peak Tomy 0.8 m/sec LVIDs 2D 2.1 2.1 - 4.1 cm LVOT Peak PG 2.4 mmHg LVPWd 2D 1.0 0.6 - 1.1 cm TR Peak Tomy 2.3 m/sec IVSd 2D 1.0 0.6 - 1.1 cm TR Peak PG 21.5 mmHg AoR Diam 2D 1.9 2.0 - 3.7 cm RVSP 25.0 mmHg EDV 2D 46.7 cm3 ESV 2D 9.8 cm3 LA Dimen 2D 3.2 2.3 - 4.0 cm Findings Left Ventricle: Ejection fraction is visually estimated at 6065 %. Abnormal Diastolic Function. Right Ventricle: Normal right ventricular size. Normal right ventricular systolic function. Left Atrium: The left atrium is normal in size. Right Atrium: The right atrium is normal in size. Mitral Valve: Normal appearance and function of the mitral valve with trace physiologic regurgitation. Aortic Valve: No significant aortic stenosis or insufficiency. Aortic cusps appear moderately calcified. Tricuspid Valve: Normal appearance of the tricuspid valve. Estimated peak PA systolic pressure 25 mmHg. There is trace tricuspid regurgitation. Pulmonic Valve: Pulmonic valve not well visualized. Pericardium: Normal pericardium with no significant pericardial effusion. Aorta: Normal aortic root. IVC: Normal size and normal respiratory collapse consistent with normal right atrial pressure. Conclusions Ejection fraction is visually estimated at 60-65 %. Abnormal Diastolic Function. Normal appearance and function of the mitral valve with trace physiologic regurgitation. No significant aortic stenosis or insufficiency. Aortic cusps appear moderately calcified. Normal appearance of the tricuspid valve. Estimated peak PA systolic pressure 25 mmHg. There is trace tricuspid regurgitation. Abnormal diastolic function. Electronically Signed By: Adrián Barragan 14-Jan-2017 13:23:02 -0700 Patient Name: MANFRED ARCINIEGA Study Date: 14-Jan-2017 [id number]
--- NOTE | 2017-01-14 13:42 | QN ---
Documentation Comment Patient at this time had negative troponin x 3 with NL EF by echo and no contraindicated valvular disease, clear lungs by exam and cxr.. Patient most recent [facility] 2013 had no sig disease with NL EF and was complicated by brief episode of VT/VF due to injection into right conus branch, during testing. Thus at this time patient has no cardiac contraindication to proceeding to ERCP at moderate CV risk without further non-invasive evaluation. Would check post-op ecg and watch closely for s/sx of cv complications. Will f/u along with you. Full note dictaated MARANDA CHATTERJEE Jan 14, 2017 13:42
[2017-01-14] MEDS: morphine 2 MG INJ IV PRN (13:48)
[2017-01-14] MEDS ORDERED: ROCURONIUM 50 MG INJ ONE (17:47)
[2017-01-14] MEDS ORDERED: ETOMIDATE 20 MG INJ ONE (17:47)
[2017-01-14] MEDS ORDERED: PHENYLephrine (100 MCG/ML) 5ML SYG ONE (17:47)
[2017-01-14] MEDS ORDERED: FENTAnyl 50 MCG/ML VIAL ONE (17:55)
[2017-01-14] MEDS ORDERED: INDOMETHACIN 50 MG SUPP PR ONE (18:00)
[2017-01-14] MEDS ORDERED: ONDANSETRON 4 MG INJ ONE (18:24)
[2017-01-14] MEDS ORDERED: CEFAZOLIN 1 GM INJ ONE (18:24)
[2017-01-14] MEDS ORDERED: METOCLOPRAMIDE 10 MG INJ ONE (18:24)
[2017-01-14] MEDS ORDERED: DEXAMETHASONE 4 MG/ML 1 ML INJ ONE (18:25)
[2017-01-14] MEDS ORDERED: SUGAMMADEX SODIUM 200 MG/2 ML VIAL IV ONE (18:58)
[2017-01-14] MEDS ORDERED: ALBUMIN HUMAN 5% 250 ML IV PRN (19:00)
[2017-01-14] MEDS ORDERED: EPHEDrine SULFATE 50 MG/5 ML SYG IV PRN (19:00)
[2017-01-14] MEDS ORDERED: MEPERIDINE 25 MG INJ IV PRN (19:00)
[2017-01-14] MEDS ORDERED: DIPHENHYDRAMINE 50 MG INJ IV PRN (19:00)
[2017-01-14] MEDS ORDERED: morphine (1 MG/ML) 10ML SYRINGE IV PRN ×2 (19:00)
[2017-01-14] MEDS ORDERED: ONDANSETRON 4 MG INJ IV PRN (19:00)
[2017-01-14] MEDS ORDERED: FENTAnyl 50 MCG/ML VIAL IV PRN ×2 (19:00)
[2017-01-14] MEDS ORDERED: hydrALAzine 20 MG INJ IV PRN (19:00)
--- NOTE | 2017-01-14 19:09 | OPPN ---
Date/Time of Note Date/Time of Note DATE: 01/14/17 TIME: 18:59 Proc Note GI Procedure date: Jan 14, 2017 Pre-procedure Diagnosis Patient presenting with a history of multiple masses in the liver there is evidence of biliary ductal as well as a pancreatic ductal dilatation Rule out obstruction secondary to metastatic disease rule out pancreatic head carcinoma Procedure at this time is performed to insert stents into the bile duct Post-procedure Diagnosis Dilatation of the pancreatic duct as well as the common bile duct Probable mass in the head of the pancreas Probable metastatic disease causing the ductal dilatation 2 stents placed one into the left hepatic duct 1 into the right hepatic du Operation Performed ERCP sphincterotomy 2 stents placed one into the left hepatic duct 1 into the right hepatic duct Surgeon: SOPHIA PACE MD Anesthesiologist: YEFRI DEE MD Estimated blood loss: none Transfusion Required: no Specimen: none Specimens None Grafts/Implants None Tubes/Drains None Complications: no (None) Complications None Pt Condition post procedure: stable Disposition: PACU Indications Obstructed bile duct and obstructed pancreatic duct through the pancreatic head constant rule out metastatic disease Operative\Procedure Findings Patient was brought to the operating room she was intubated by anesthesiology Dr. Prabhakar While the patient was in prone position Olympus video side-viewing duodenoscope was inserted into the oropharynx and then into the esophagus and then into the stomach Subsequently scope was advanced into the duodenum. Ampulla appeared to be normal. At this time by using the dream dome of the guidewire cannulation of both common hepatic duct and pancreatic duct was performed Both ducts appear to be significantly dilated At this time one guidewire was inserted into the left hepatic duct another guidewire was placed into the right hepatic duct It appears that the common bile duct and common hepatic duct was significantly dilated but bilateral hepatic ducts did not appear to show significant dilatation I thought it was prudent to insert 1 stent into the left hepatic duct under the stent into the right hepatic duct Hands over the guidewire 7 English 9 cm long [place] type of stent was placed into the left hepatic duct across the ampulla into the duodenum Another 10 x 7 [place] type of endobiliary prosthesis was inserted into the common hepatic duct and right hepatic duct across the ampulla into the duodenum After taking several photographs the scope was withdrawn and the procedure was terminated Plan watch the patient End of dictation please send copy to my office and also to Lino Logan, thank you SOPHIA PACE MD Jan 14, 2017 19:09
[2017-01-14] MEDS: LABETALOL HCL 20MG INJ IV PRN ×3 (19:18→20:15)
--- NOTE | 2017-01-14 23:16 | RADRPT ---
PROCEDURE: Fluoroscopy services CLINICAL INDICATION: Abdominal pain. TECHNIQUE: Fluoroscopy services during ERCP. COMPARISON: MRCP dated 01/13/2017. FINDINGS: Fluoroscopy services were employed during ERCP. 12 intraoperative spot films were obtained at inter mediate stages during this procedure and demonstrate instrumentation over the right upper quadrant, with cannulization the common bile duct, and opacification of the common bile duct and distal hepati c biliary structures. The distal hepatic biliary structures appear narrowed. There is dilation of th e distal pancreatic duct. 301.1 seconds of fluoroscopy time were employed during this procedure. IMPRESSION: Fluoroscopy services during ERCP. RPTAT: UU Physician Sam Date Time Electronically viewed and signed by Physician Sam on 01/14/2017 23:16 RS/
[2017-01-15] MEDS: morphine 2 MG INJ IV PRN ×2 (05:44→20:43)
[2017-01-15] MEDS: D5W-0.45 NACL + KCL 40 MEQ 1,000 ML IV SCH ×2 (05:44→17:15)
[2017-01-15 05:48] VITALS: BP 161/85; RESP 18
[2017-01-15 06:10] LABS: BASOPHILS % 0.1 % (0.0-2.0); EOSINOPHILS % 0.1 % (0.0-7.0); HEMATOCRIT 39.1 % (37.0-47.0); LYMPHOCYTES # 0.7 10^3/ul (0.8-2.9); LYMPHOCYTES % 7.2 % (15.0-51.0); MEAN CORPUSCULAR HEMOGLOBIN 29.9 pg (29.0-33.0); MEAN CORPUSCULAR HGB CONC 33.2 g/dl (32.0-37.0); MEAN CORPUSCULAR VOLUME 89.9 fl (82.0-101.0); MEAN PLATELET VOLUME 11.3 fl (7.4-10.4); MONOCYTES % 10.1 % (0.0-11.0); NEUTROPHIL # 7.8 10^3/ul (1.6-7.5); PLATELET COUNT 233 10^3/UL (140-415); RED BLOOD COUNT 4.35 10^6/ul (4.20-5.40); RED CELL DISTRIBUTION WIDTH 14.9 % (11.5-14.5); WHITE BLOOD COUNT 9.5 10^3/ul (4.8-10.8)
[2017-01-15 06:21] LABS: MAGNESIUM 2.2 mg/dl (1.7-2.5); PHOSPHORUS 3.1 mg/dl (2.5-4.9)
[2017-01-15 06:28] LABS: ALBUMIN 3.4 g/dl (3.3-4.9); ALBUMIN/GLOBULIN RATIO 1.21; BILIRUBIN,INDIRECT 1.2 mg/dl (0-1.1); BILIRUBIN,TOTAL 1.2 mg/dl (0.2-1.3); CALCIUM 8.2 mg/dl (8.4-10.2); CREATININE 0.53 mg/dl (0.44-1.00); POTASSIUM 4.9 mmol/L (3.5-5.1); TOTAL PROTEIN 6.2 g/dl (6.1-8.1)
[2017-01-15 07:50] VITALS: BP 174/89; RESP 18
[2017-01-15] MEDS: FISH OIL 1,000 MG CAP PO SCH ×2 (09:00→20:35)
[2017-01-15] MEDS: VALSARTAN 160 MG TAB PO SCH ×2 (12:14→20:35)
[2017-01-15] MEDS: ISOSORBIDE MONONITRATE(SR)30 MG TAB PO SCH (12:15)
[2017-01-15] MEDS: DULOXETINE 30 MG CAP DR PO SCH (12:15)
--- NOTE | 2017-01-15 13:24 | CONS ---
Date/Time of Note Date/Time of Note DATE: 01/15/17 TIME: 13:16 Assessment/Plan Assessment/Plan Chief Complaint/Hosp Course IMP: 1.Pre-op for ERCP-now s/p with no complications 2.abnl ecg 3.tachycardia-s tach-improved 4.Pancreatic mass/pancreatic ca s/p ERCP 5. 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-No sig cad at same cath and NL EF by echo this admit 6.HTN-uncontrolled possible component of pain Recc: -Continue diovan/imdur as patient able to take -STart Clonidine TTS to improve BP given nausea -Pain control -ONgoing eval of pancreatic mass/abd pain Problems: Consultation Date/Type/Reason Admit Date/Time Jan 13, 2017 at 02:01 Initial Consult Date 01/14/2017 Type of Consultation: cardiology Reason for Consultation pre-op Referring Provider: NASIMA PRICE Exam/Review of Systems Vital Signs Vitals Vital Signs Date Time Temp Pulse Resp B/P Pulse Ox O2 Delivery O2 Flow Rate FiO2 01/15/17 07:50 98.1 88 18 174/89 96 01/14/17 22:30 Nasal Cannula 2.0 Intake and Output 01/14/17 01/14/17 01/15/17 15:00 23:00 07:00 Intake Total 1050 ml 950 ml Output Total 1200 ml 700 ml Balance -150 ml 250 ml Exam Review of Systems: CONSTITUTIONAL: No fevers, chills. PULMONARY: No sob CARDIOVASCULAR: No chest pain/palpitations GASTROINTESTINAL: Positive nausea/abd pain GENITOURINARY: No hematuria/dysuria. MUSCULOSKELETAL: No myagias/arthalgias. PSYCHIATRIC: The patient denies depression. NEUROLOGIC: generalized weakness Constitutional: alert Psych: no complaints Head: normocephalic ENMT: mucosa pink and moist Neck: jvd (9 cm water), supple Respiratory: diminished breath sounds Cardiovascular: regular rate and rhythm Gastrointestinal: non-tender, soft Musculoskeletal: muscle tone Extremities: edema (none) Neurological: lethargic Results Result Diagram: 01/15/17 0436 01/15/17 0436 Results 24 hrs Laboratory Tests Test 01/15/17 04:36 White Blood Count 9.5 # Red Blood Count 4.35 Hemoglobin 13.0 Hematocrit 39.1 Mean Corpuscular Volume 89.9 Mean Corpuscular Hemoglobin 29.9 Mean Corpuscular Hemoglobin Concent 33.2 Red Cell Distribution Width 14.9 H Platelet Count 233 # Mean Platelet Volume 11.3 H Neutrophils % 82.0 H Lymphocytes % 7.2 L Monocytes % 10.1 Eosinophils % 0.1 Basophils % 0.1 Nucleated Red Blood Cells % 0.0 Neutrophils # 7.8 H Lymphocytes # 0.7 L Monocytes # 1.0 H Eosinophils # 0.0 Basophils # 0.0 Nucleated Red Blood Cells # 0.0 Sodium Level 140 Potassium Level 4.9 Chloride Level 104 Carbon Dioxide Level 22 Anion Gap 19 H Blood Urea Nitrogen 5 L Creatinine 0.53 Glucose Level 137 Calcium Level 8.2 L Phosphorus Level 3.1 Magnesium Level 2.2 Total Bilirubin 1.2 Direct Bilirubin 0.00 Indirect Bilirubin 1.2 H Aspartate Amino Transf (AST/SGOT) 115 H Alanine Aminotransferase (ALT/SGPT) 73 H Alkaline Phosphatase 202 H Total Protein 6.2 Albumin 3.4 Globulin 2.80 Albumin/Globulin Ratio 1.21 Medications Medications Current Medications Duloxetine HCl (Cymbalta) 30 mg DAILY PO Last administered on 01/15/17 12:15; Admin Dose 30 MG; Start 01/13/17 at 09:00 Fish Oil (Fish Oil) 2,000 mg BID PO Last administered on 01/13/17 20:49; Admin Dose 2,000 MG; Start 01/13/17 at 09:00 Quetiapine Fumarate (Seroquel) 25 mg Q4H PRN PO agitation Last administered on 01/13/17 23:39; Admin Dose 25 MG; Start 01/13/17 at 02:30 Haloperidol 1 mg 1 mg Q4H PRN IM agitation Last administered on 01/14/17 01:36 ; Admin Dose 1 MG; Start 01/13/17 at 02:30 Potassium Chloride/Dextrose/ Sod Cl (D5-1/2ns + KCl 40 Meq) 1,000 ml @ 100 mls/ hr Q10H IV Last administered on 01/15/17 05:44; Admin Dose 100 MLS/HR; Start 01/13/17 at 02:30 Acetaminophen (Tylenol Tab) 650 mg Q4H PRN PO pain/fever; Start 01/13/17 at 02: 30 Morphine Sulfate (morphine) 2 mg Q2H PRN IV pain Last administered on 05:44; Admin Dose 2 MG; Start 01/13/17 at 02:30 Ondansetron HCl (Zofran Inj) 4 mg Q4H PRN IV nausea; Start 01/13/17 at 02:30 Hydralazine HCl (Apresoline) 10 mg Q6H PRN IV ELEVATED BLOOD PRESSURE; Start at 12:00 Isosorbide Mononitrate (Imdur) 30 mg DAILY PO Last administered on 01/15/17 12 :15; Admin Dose 30 MG; Start 01/15/17 at 09:00 Valsartan (Diovan) 160 mg BID PO Last administered on 01/15/17 12:14; Admin Dose 160 MG; Start 01/14/17 at 21:00 MARANDA CHATTERJEE Jan 15, 2017 13:24
--- NOTE | 2017-01-15 14:06 | PN ---
Date/Time of Note Date/Time of Note DATE: 01/15/17 TIME: 14:00 Assessment/Plan VTE Prophylaxis VTE Prophylaxis Intervention: SCD's Lines/Catheters IV Catheter Type (from Nrsg): Peripheral IV Urinary Cath still in place: Yes Reason Cath still needed: other (indicate) (Monitor urine output) Assessment/Plan Assessment/Plan 81-year-old female with: 1. 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 I will discuss with gastroenterology what would be the best option for biopsy, EUS versus liver mass biopsy. I have talked to the son, if liver mass biopsy is the plan therefore patient will be biopsied here at [facility] per their preference, if EUS is needed we will have to arrange as an outpatient. Also for discharge planning son is interested in intermediate facility placement, case management has been notified. Continue pain management with minimum dose of morphine, patient on full liquid diet. 2. Dehydration: Better p.o. intake at least for medications today and also full liquid diet, continue IV fluids. 3. 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 Full liquid diet Pain control with morphine low-dose as needed Continue IV fluids at lower rate 4. Hypertension: Continue current medication in addition of hydralazine as needed. 5. Mild dementia: Likely slightly exacerbated currently with acute findings. Stable, cooperative Continue outpatient medication as tolerated. Monitor. Prophylaxis: SCDs for DVT prophylaxis, Pepcid for GI prophylaxis Disposition: We will need tissue biopsy, will discuss with GI. Also at discharge son is interested in intermediate facility, case management has been notified. Subjective 24 Hr Interval Summary Free Text/Dictation Patient patient still in pain during my exam but apparently when she received a dose of morphine she would sleep afterwards for hours. Will decrease morphine doses Status post ERCP with stent placement, apparently no biopsy taken. Patient will need either EUS for pancreatic mass biopsy versus liver joann biopsy will discuss with GI Exam/Review of Systems Vital Signs Vitals Vital Signs Date Time Temp Pulse Resp B/P Pulse Ox O2 Delivery O2 Flow Rate FiO2 01/15/17 07:50 98.1 88 18 174/89 96 01/14/17 22:30 Nasal Cannula 2.0 Intake and Output 01/14/17 01/14/17 01/15/17 14:59 22:59 06:59 Intake Total 1050 ml 950 ml Output Total 1200 ml 700 ml Balance -150 ml 250 ml Exam Constitutional: alert, frail, other (Some discomfort from pain) Respiratory: clear to auscultation, normal air movement Cardiovascular: regular rate and rhythm Gastrointestinal: soft, tender (Epigastric) Musculoskeletal: nl extremities to inspection Extremities: normal pulses 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, lethargic, nl mental status, nl speech ([place] base) Results Result Diagram: 01/15/17 0436 01/15/17 0436 Results 24 hrs Laboratory Tests Test 01/15/17 04:36 White Blood Count 9.5 # Red Blood Count 4.35 Hemoglobin 13.0 Hematocrit 39.1 Mean Corpuscular Volume 89.9 Mean Corpuscular Hemoglobin 29.9 Mean Corpuscular Hemoglobin Concent 33.2 Red Cell Distribution Width 14.9 H Platelet Count 233 # Mean Platelet Volume 11.3 H Neutrophils % 82.0 H Lymphocytes % 7.2 L Monocytes % 10.1 Eosinophils % 0.1 Basophils % 0.1 Nucleated Red Blood Cells % 0.0 Neutrophils # 7.8 H Lymphocytes # 0.7 L Monocytes # 1.0 H Eosinophils # 0.0 Basophils # 0.0 Nucleated Red Blood Cells # 0.0 Sodium Level 140 Potassium Level 4.9 Chloride Level 104 Carbon Dioxide Level 22 Anion Gap 19 H Blood Urea Nitrogen 5 L Creatinine 0.53 Glucose Level 137 Calcium Level 8.2 L Phosphorus Level 3.1 Magnesium Level 2.2 Total Bilirubin 1.2 Direct Bilirubin 0.00 Indirect Bilirubin 1.2 H Aspartate Amino Transf (AST/SGOT) 115 H Alanine Aminotransferase (ALT/SGPT) 73 H Alkaline Phosphatase 202 H Total Protein 6.2 Albumin 3.4 Globulin 2.80 Albumin/Globulin Ratio 1.21 Medications Medications Current Medications Duloxetine HCl (Cymbalta) 30 mg DAILY PO Last administered on 01/15/17 12:15; Admin Dose 30 MG; Start 01/13/17 at 09:00 Fish Oil (Fish Oil) 2,000 mg BID PO Last administered on 01/13/17 20:49; Admin Dose 2,000 MG; Start 01/13/17 at 09:00 Quetiapine Fumarate (Seroquel) 25 mg Q4H PRN PO agitation Last administered on 01/13/17 23:39; Admin Dose 25 MG; Start 01/13/17 at 02:30 Haloperidol 1 mg 1 mg Q4H PRN IM agitation Last administered on 01/14/17 01:36 ; Admin Dose 1 MG; Start 01/13/17 at 02:30 Potassium Chloride/Dextrose/ Sod Cl (D5-1/2ns + KCl 40 Meq) 1,000 ml @ 100 mls/ hr Q10H IV Last administered on 01/15/17 05:44; Admin Dose 100 MLS/HR; Start 01/13/17 at 02:30 Acetaminophen (Tylenol Tab) 650 mg Q4H PRN PO pain/fever; Start 01/13/17 at 02: 30 Morphine Sulfate (morphine) 2 mg Q2H PRN IV pain Last administered on 05:44; Admin Dose 2 MG; Start 01/13/17 at 02:30 Ondansetron HCl (Zofran Inj) 4 mg Q4H PRN IV nausea; Start 01/13/17 at 02:30 Hydralazine HCl (Apresoline) 10 mg Q6H PRN IV ELEVATED BLOOD PRESSURE; Start at 12:00 Isosorbide Mononitrate (Imdur) 30 mg DAILY PO Last administered on 01/15/17 12 :15; Admin Dose 30 MG; Start 01/15/17 at 09:00 Valsartan (Diovan) 160 mg BID PO Last administered on 01/15/17 12:14; Admin Dose 160 MG; Start 01/14/17 at 21:00 Clonidine HCl (Catapres-Tts 2 Patch) 1 patch Q7D TRANSDERM ; Start 01/15/17 at 15:00 NASIMA PRICE Jan 15, 2017 14:06
[2017-01-15] MEDS ORDERED: CLONIDINE 0.2 MG/24 HR PATCH TRANSDERM SCH (15:00)
[2017-01-15] MEDS ORDERED: morphine 2 MG INJ IV PRN (15:00)
[2017-01-15 19:45] VITALS: BP 178/98; PULSE 88; RESP 18
[2017-01-15 20:12] VITALS: BP 175/100; PULSE 100; RESP 18
[2017-01-15] MEDS: hydrALAzine 20 MG INJ IV PRN (20:36)
[2017-01-15 21:09] VITALS: BP 150/80; PULSE 88; RESP 18
[2017-01-15 22:10] VITALS: BP 138/74; PULSE 78; RESP 18
[2017-01-15] MEDS: HALOPERIDOL 5 MG INJ IM PRN (22:47)
[2017-01-16] MEDS: D5W-0.45 NACL + KCL 40 MEQ 1,000 ML IV SCH ×2 (03:33→10:30)
[2017-01-16 04:53] LABS: BASOPHILS % 0.3 % (0.0-2.0); EOSINOPHILS % 0.3 % (0.0-7.0); HEMATOCRIT 42.4 % (37.0-47.0); LYMPHOCYTES # 1.3 10^3/ul (0.8-2.9); LYMPHOCYTES % 12.8 % (15.0-51.0); MEAN CORPUSCULAR HEMOGLOBIN 29.4 pg (29.0-33.0); MEAN CORPUSCULAR VOLUME 89.1 fl (82.0-101.0); MEAN PLATELET VOLUME 10.7 fl (7.4-10.4); MONOCYTE # 1.1 10^3/ul (0.3-0.9); MONOCYTES % 11.2 % (0.0-11.0); NEUTROPHIL # 7.5 10^3/ul (1.6-7.5); NEUTROPHILS % 74.9 % (39.0-77.0); PLATELET COUNT 273 10^3/UL (140-415); RED BLOOD COUNT 4.76 10^6/ul (4.20-5.40); RED CELL DISTRIBUTION WIDTH 14.7 % (11.5-14.5)
[2017-01-16 05:12] LABS: ALBUMIN 3.5 g/dl (3.3-4.9); ALBUMIN/GLOBULIN RATIO 1.12; BILIRUBIN,INDIRECT 1.4 mg/dl (0-1.1); BILIRUBIN,TOTAL 1.4 mg/dl (0.2-1.3); CALCIUM 8.7 mg/dl (8.4-10.2); CREATININE 0.5 mg/dl (0.44-1.00); POTASSIUM 5.2 mmol/L (3.5-5.1); TOTAL PROTEIN 6.6 g/dl (6.1-8.1)
[2017-01-16 05:18] LABS: PHOSPHORUS 2.4 mg/dl (2.5-4.9)
[2017-01-16 05:39] LABS: INR 1.19; PARTIAL THROMBOPLASTIN TIME 30.9 Sec (25.0-35.0); PROTIME 15.2 Sec (12.2-14.2); PT RATIO 1.2
[2017-01-16 07:30] VITALS: BP 149/78; RESP 18
[2017-01-16] MEDS: ISOSORBIDE MONONITRATE(SR)30 MG TAB PO SCH (09:05)
[2017-01-16] MEDS: FISH OIL 1,000 MG CAP PO SCH ×2 (09:05→21:02)
[2017-01-16] MEDS: VALSARTAN 160 MG TAB PO SCH ×2 (09:05→21:01)
[2017-01-16] MEDS: DULOXETINE 30 MG CAP DR PO SCH (09:05)
[2017-01-16] MEDS: morphine 2 MG INJ IV PRN ×3 (09:06→17:38)
--- NOTE | 2017-01-16 11:16 | RADRPT ---
Vent Rate: 87 bpm RR Interval: 0 msec TN Interval: 168 msec QRS Duration: 82 msec QT Interval: 380 msec QTC Interval: 457 msec P-R-T [place]: 23 - 23 - 54 degrees Normal sinus rhythm Normal ECG Electronically Signed By: Rustam Ruvalcaba [id number]
[2017-01-16] MEDS: DEXTROSE 5%-0.9% NACL 1,000 ML IV SCH ×2 (11:37→21:02)
--- NOTE | 2017-01-16 12:08 | PN ---
Date/Time of Note Date/Time of Note DATE: 01/16/17 TIME: 12:05 Assessment/Plan VTE Prophylaxis VTE Prophylaxis Intervention: SCD's Lines/Catheters IV Catheter Type (from Nrs): Peripheral IV Urinary Cath still in place: Yes Reason Cath still needed: other (indicate) (Monitor urine output) Assessment/Plan Assessment/Plan 81-year-old female with: 1. 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 Plan for post percutaneous CT-guided liver mass biopsy with interventional radiology on Wednesday I will give vitamin K today, we will recheck PT and INR Wednesday morning N.p.o. after midnight Wednesday evening Also for discharge planning son is interested in shelter facility placement, case management has been notified. Continue pain management with minimum dose of morphine, patient on full liquid diet. 2. Dehydration: Better p.o. intake at least for medications today and also full liquid diet, continue IV fluids. 3. 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 Full liquid diet Pain control with morphine low-dose as needed Continue IV fluids at lower rate 4. Hypertension: Continue current medication in addition of hydralazine as needed. 5. Mild dementia: Likely slightly exacerbated currently with acute findings. Stable, cooperative Continue outpatient medication as tolerated. Monitor. Prophylaxis: SCDs for DVT prophylaxis, Pepcid for GI prophylaxis Disposition: CT-guided percutaneous biopsy of 1 of the liver masses, hopefully can be done on Wednesday. Also at discharge son is interested in shelter facility. Subjective 24 Hr Interval Summary Free Text/Dictation Patient sleeping comfortably currently, she is on room air, remains stable. Discussed with Dr. Goldman last night, will attempt a percutaneous CT-guided liver mass biopsy for tissue diagnosis of suspected metastatic pancreatic carcinoma. Son at bedside updated, patient will be placed n.p.o. after midnight on Wednesday night Exam/Review of Systems Vital Signs Vitals Vital Signs Date Time Temp Pulse Resp B/P Pulse Ox O2 Delivery O2 Flow Rate FiO2 01/16/17 08:00 Nasal Cannula 2.0 01/16/17 07:30 98.2 73 18 149/78 91 Intake and Output 01/15/17 01/15/17 01/16/17 15:00 23:00 07:00 Intake Total 1400 ml 1500 ml Output Total 1700 ml Balance 1400 ml -200 ml Exam Constitutional: alert, frail, oriented, other (Sleeping comfortably) Respiratory: clear to auscultation, normal air movement Cardiovascular: nl pulses, regular rate and rhythm Gastrointestinal: soft, tender (Mild to moderate tenderness to palpation epigastric) Musculoskeletal: nl extremities to inspection Extremities: normal pulses 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, nl mental status, nl speech, nl strength Results Result Diagram: 01/16/1743001/16/17 043 Results 24 hrs Laboratory Tests Test 01/16/17 04:31 White Blood Count 10.0 Red Blood Count 4.76 Hemoglobin 14.0 Hematocrit 42.4 Mean Corpuscular Volume 89.1 Mean Corpuscular Hemoglobin 29.4 Mean Corpuscular Hemoglobin Concent 33.0 Red Cell Distribution Width 14.7 H Platelet Count 273 Mean Platelet Volume 10.7 H Neutrophils % 74.9 Lymphocytes % 12.8 L Monocytes % 11.2 H Eosinophils % 0.3 Basophils % 0.3 Nucleated Red Blood Cells % 0.0 Neutrophils # 7.5 Lymphocytes # 1.3 Monocytes # 1.1 H Eosinophils # 0.0 Basophils # 0.0 Nucleated Red Blood Cells # 0.0 Prothrombin Time 15.2 H Prothrombin Time Ratio 1.2 INR International Normalized Ratio 1.19 Activated Partial Thromboplast Time 30.9 Sodium Level 137 Potassium Level 5.2 H Chloride Level 100 Carbon Dioxide Level 24 Anion Gap 18 H Blood Urea Nitrogen 4 L Creatinine 0.50 Glucose Level 130 Calcium Level 8.7 Phosphorus Level 2.4 L Magnesium Level 2.0 Total Bilirubin 1.4 H Direct Bilirubin 0.00 Indirect Bilirubin 1.4 H Aspartate Amino Transf (AST/SGOT) 126 H Alanine Aminotransferase (ALT/SGPT) 77 H Alkaline Phosphatase 208 H Total Protein 6.6 Albumin 3.5 Globulin 3.10 Albumin/Globulin Ratio 1.12 Medications Medications Current Medications Duloxetine HCl (Cymbalta) 30 mg DAILY PO Last administered on 01/16/17 09:05; Admin Dose 30 MG; Start 01/13/17 at 09:00 Fish Oil (Fish Oil) 2,000 mg BID PO Last administered on 01/16/17 09:05; Admin Dose 2,000 MG; Start 01/13/17 at 09:00 Quetiapine Fumarate (Seroquel) 25 mg Q4H PRN PO agitation Last administered on 01/13/17 23:39; Admin Dose 25 MG; Start 01/13/17 at 02:30 Haloperidol (Haldol) 1 mg Q4H PRN IM agitation Last administered on 01/15/17 22:47; Admin Dose 1 MG; Start 01/13/17 at 02:30 Acetaminophen (Tylenol Tab) 650 mg Q4H PRN PO pain/fever; Start 01/13/17 at 02: 30 Morphine Sulfate (morphine) 2 mg Q2H PRN IV pain Last administered on 11:41; Admin Dose 2 MG; Start 01/13/17 at 02:30 Ondansetron HCl (Zofran Inj) 4 mg Q4H PRN IV nausea; Start 01/13/17 at 02:30 Isosorbide Mononitrate (Imdur) 30 mg DAILY PO Last administered on 01/16/17 09 :05; Admin Dose 30 MG; Start 01/15/17 at 09:00 Valsartan (Diovan) 160 mg BID PO Last administered on 01/16/17 09:05; Admin Dose 160 MG; Start 01/14/17 at 21:00 Clonidine HCl (Catapres-Tts 2 Patch) 1 patch Q7D TRANSDERM Last administered on 01/15/17 17:17; Admin Dose 1 PATCH; Start 01/15/17 at 15:00 Morphine Sulfate (morphine) 1 mg Q4H PRN IV PAIN LEVEL 4-7 Last administered on 01/15/17 14:53; Admin Dose 1 MG; Start 01/15/17 at 15:00 Hydralazine HCl 10 mg 10 mg Q6H PRN IV SBP>160 Last administered on 01/15/17 20:36; Admin Dose 10 MG; Start 01/15/17 at 20:30 Dextrose/Sodium Chloride 1,000 ml @ 100 mls/hr Q10H IV Last administered on 11:37; Admin Dose 100 MLS/HR; Start 01/16/17 at 11:00 Phytonadione/ Dextrose (Vitamin K/D5W) 51 ml @ 102 mls/hr ONCE ONCE IVPB ; Start 01/16/17 at 13:00; Stop 01/16/17 at 13:29 NASIMA PRICE Jan 16, 2017 12:08
[2017-01-16] MEDS ORDERED: PHYTONADIONE 10 MG in DEXTROSE 5% 50 ML IVPB ONE (13:00)
--- NOTE | 2017-01-16 15:45 | CONS ---
Date/Time of Note Date/Time of Note DATE: 01/16/17 TIME: 15:42 Assessment/Plan Assessment/Plan Additional Assessment/Plan S/P ERCP with Pancreatic cancer Abnormal Electrocardiogram V. Tach/ V. Fib Hypertension Continue Imdur Continue Diovan Continue Catapres Continue Pain Meds as scheduled Consultation Date/Type/Reason Admit Date/Time Jan 13, 2017 at 02:01 Constitutional: no complaints Respiratory: no complaints Cardiovascular: no complaints Gastrointestinal: decreased appetite, nausea, pain (Epigastric and bilateral upper abdomen), vomiting Genitourinary: no complaints Musculoskeletal: no complaints Skin: no complaints Neurologic: no complaints Psychological: no complaints Social History Alcohol Use: none Smoking Status: Never smoker Drug Use: none Exam/Review of Systems Vital Signs Vitals Vital Signs Date Time Temp Pulse Resp B/P Pulse Ox O2 Delivery O2 Flow Rate FiO2 01/16/17 08:00 Nasal Cannula 2.0 01/16/17 07:30 98.2 73 18 149/78 91 Intake and Output 01/15/17 01/15/17 01/16/17 15:00 23:00 07:00 Intake Total 1400 ml 1500 ml Output Total 1700 ml Balance 1400 ml -200 ml Exam Constitutional: alert Psych: no complaints Head: atraumatic, normocephalic Neck: non-tender, supple Respiratory: clear to auscultation Cardiovascular: regular rate and rhythm Gastrointestinal: nl liver, spleen, non-tender, soft Extremities: normal pulses Results Result Diagram: 01/16/17 0431 01/16/17 0431 Results 24 hrs Laboratory Tests Test 01/16/17 04:31 White Blood Count 10.0 Red Blood Count 4.76 Hemoglobin 14.0 Hematocrit 42.4 Mean Corpuscular Volume 89.1 Mean Corpuscular Hemoglobin 29.4 Mean Corpuscular Hemoglobin Concent 33.0 Red Cell Distribution Width 14.7 H Platelet Count 273 Mean Platelet Volume 10.7 H Neutrophils % 74.9 Lymphocytes % 12.8 L Monocytes % 11.2 H Eosinophils % 0.3 Basophils % 0.3 Nucleated Red Blood Cells % 0.0 Neutrophils # 7.5 Lymphocytes # 1.3 Monocytes # 1.1 H Eosinophils # 0.0 Basophils # 0.0 Nucleated Red Blood Cells # 0.0 Prothrombin Time 15.2 H Prothrombin Time Ratio 1.2 INR International Normalized Ratio 1.19 Activated Partial Thromboplast Time 30.9 Sodium Level 137 Potassium Level 5.2 H Chloride Level 100 Carbon Dioxide Level 24 Anion Gap 18 H Blood Urea Nitrogen 4 L Creatinine 0.50 Glucose Level 130 Calcium Level 8.7 Phosphorus Level 2.4 L Magnesium Level 2.0 Total Bilirubin 1.4 H Direct Bilirubin 0.00 Indirect Bilirubin 1.4 H Aspartate Amino Transf (AST/SGOT) 126 H Alanine Aminotransferase (ALT/SGPT) 77 H Alkaline Phosphatase 208 H Total Protein 6.6 Albumin 3.5 Globulin 3.10 Albumin/Globulin Ratio 1.12 Medications Medications Current Medications Duloxetine HCl (Cymbalta) 30 mg DAILY PO Last administered on 01/16/17 09:05; Admin Dose 30 MG; Start 01/13/17 at 09:00 Fish Oil (Fish Oil) 2,000 mg BID PO Last administered on 01/16/17 09:05; Admin Dose 2,000 MG; Start 01/13/17 at 09:00 Quetiapine Fumarate (Seroquel) 25 mg Q4H PRN PO agitation Last administered on 01/13/17 23:39; Admin Dose 25 MG; Start 01/13/17 at 02:30 Haloperidol (Haldol) 1 mg Q4H PRN IM agitation Last administered on 01/15/17 22:47; Admin Dose 1 MG; Start 01/13/17 at 02:30 Acetaminophen (Tylenol Tab) 650 mg Q4H PRN PO pain/fever; Start 01/13/17 at 02: 30 Morphine Sulfate (morphine) 2 mg Q2H PRN IV pain Last administered on 11:41; Admin Dose 2 MG; Start 01/13/17 at 02:30 Ondansetron HCl (Zofran Inj) 4 mg Q4H PRN IV nausea; Start 01/13/17 at 02:30 Isosorbide Mononitrate (Imdur) 30 mg DAILY PO Last administered on 01/16/17 09 :05; Admin Dose 30 MG; Start 01/15/17 at 09:00 Valsartan (Diovan) 160 mg BID PO Last administered on 01/16/17 09:05; Admin Dose 160 MG; Start 01/14/17 at 21:00 Clonidine HCl (Catapres-Tts 2 Patch) 1 patch Q7D TRANSDERM Last administered on 01/15/17 17:17; Admin Dose 1 PATCH; Start 01/15/17 at 15:00 Morphine Sulfate (morphine) 1 mg Q4H PRN IV PAIN LEVEL 4-7 Last administered on 01/15/17 14:53; Admin Dose 1 MG; Start 01/15/17 at 15:00 Hydralazine HCl 10 mg 10 mg Q6H PRN IV SBP>160 Last administered on 01/15/17 20:36; Admin Dose 10 MG; Start 01/15/17 at 20:30 Dextrose/Sodium Chloride (D5-NS) 1,000 ml @ 100 mls/hr Q10H IV Last administered on 01/16/17 11:37; Admin Dose 100 MLS/HR; Start 01/16/17 at 11:00 FRED FRYE M.D. Jan 16, 2017 15:45
--- NOTE | 2017-01-16 16:45 | CONS ---
Date/Time of Note Date/Time of Note DATE: 01/16/17 TIME: 16:43 Consultation Date/Type/Reason Admit Date/Time Jan 13, 2017 at 02:01 Initial Consult Date Type of Consultation: cardiology Reason for Consultation Metastatic liver disease and biliary obstruction Referring Provider: NASIMA PRICE 24 HR Interval Summary Free Text/Dictation Patient was seen by me because of a biliary obstruction ERCP was performed and the CBD stent was placed In fact 1 stent into the left hepatic duct under the stent into the right hepatic duct were placed On exam patient appears to be stable Consult with , Plan is to obtain a percutaneous liver biopsy on a pancreatic biopsy Subjective hx not possible: pt non-verbal, pt critical status Exam/Review of Systems Vital Signs Vitals Vital Signs Date Time Temp Pulse Resp B/P Pulse Ox O2 Delivery O2 Flow Rate FiO2 01/16/17 08:00 Nasal Cannula 2.0 01/16/17 07:30 98.2 73 18 149/78 91 Intake and Output 01/15/17 01/15/17 01/16/17 15:00 23:00 07:00 Intake Total 1400 ml 1500 ml Output Total 1700 ml Balance 1400 ml -200 ml Results Result Diagram: 01/16/17 0431 01/16/17 0431 Results 24 hrs Laboratory Tests Test 01/16/17 04:31 White Blood Count 10.0 Red Blood Count 4.76 Hemoglobin 14.0 Hematocrit 42.4 Mean Corpuscular Volume 89.1 Mean Corpuscular Hemoglobin 29.4 Mean Corpuscular Hemoglobin Concent 33.0 Red Cell Distribution Width 14.7 H Platelet Count 273 Mean Platelet Volume 10.7 H Neutrophils % 74.9 Lymphocytes % 12.8 L Monocytes % 11.2 H Eosinophils % 0.3 Basophils % 0.3 Nucleated Red Blood Cells % 0.0 Neutrophils # 7.5 Lymphocytes # 1.3 Monocytes # 1.1 H Eosinophils # 0.0 Basophils # 0.0 Nucleated Red Blood Cells # 0.0 Prothrombin Time 15.2 H Prothrombin Time Ratio 1.2 INR International Normalized Ratio 1.19 Activated Partial Thromboplast Time 30.9 Sodium Level 137 Potassium Level 5.2 H Chloride Level 100 Carbon Dioxide Level 24 Anion Gap 18 H Blood Urea Nitrogen 4 L Creatinine 0.50 Glucose Level 130 Calcium Level 8.7 Phosphorus Level 2.4 L Magnesium Level 2.0 Total Bilirubin 1.4 H Direct Bilirubin 0.00 Indirect Bilirubin 1.4 H Aspartate Amino Transf (AST/SGOT) 126 H Alanine Aminotransferase (ALT/SGPT) 77 H Alkaline Phosphatase 208 H Total Protein 6.6 Albumin 3.5 Globulin 3.10 Albumin/Globulin Ratio 1.12 Medications Medications Current Medications Duloxetine HCl (Cymbalta) 30 mg DAILY PO Last administered on 01/16/17 09:05; Admin Dose 30 MG; Start 01/13/17 at 09:00 Fish Oil (Fish Oil) 2,000 mg BID PO Last administered on 01/16/17 09:05; Admin Dose 2,000 MG; Start 01/13/17 at 09:00 Quetiapine Fumarate (Seroquel) 25 mg Q4H PRN PO agitation Last administered on 01/13/17 23:39; Admin Dose 25 MG; Start 01/13/17 at 02:30 Haloperidol (Haldol) 1 mg Q4H PRN IM agitation Last administered on 01/15/17 22:47; Admin Dose 1 MG; Start 01/13/17 at 02:30 Acetaminophen (Tylenol Tab) 650 mg Q4H PRN PO pain/fever; Start 01/13/17 at 02: 30 Morphine Sulfate (morphine) 2 mg Q2H PRN IV pain Last administered on 11:41; Admin Dose 2 MG; Start 01/13/17 at 02:30 Ondansetron HCl (Zofran Inj) 4 mg Q4H PRN IV nausea; Start 01/13/17 at 02:30 Isosorbide Mononitrate (Imdur) 30 mg DAILY PO Last administered on 01/16/17 09 :05; Admin Dose 30 MG; Start 01/15/17 at 09:00 Valsartan (Diovan) 160 mg BID PO Last administered on 01/16/17 09:05; Admin Dose 160 MG; Start 01/14/17 at 21:00 Clonidine HCl (Catapres-Tts 2 Patch) 1 patch Q7D TRANSDERM Last administered on 01/15/17 17:17; Admin Dose 1 PATCH; Start 01/15/17 at 15:00 Morphine Sulfate (morphine) 1 mg Q4H PRN IV PAIN LEVEL 4-7 Last administered on 01/15/17 14:53; Admin Dose 1 MG; Start 01/15/17 at 15:00 Hydralazine HCl 10 mg 10 mg Q6H PRN IV SBP>160 Last administered on 01/15/17 20:36; Admin Dose 10 MG; Start 01/15/17 at 20:30 Dextrose/Sodium Chloride (D5-NS) 1,000 ml @ 100 mls/hr Q10H IV Last administered on 01/16/17 11:37; Admin Dose 100 MLS/HR; Start 01/16/17 at 11:00 SOPHIA PACE MD Jan 16, 2017 16:44
[2017-01-16 17:10] VITALS: BP 167/97; RESP 20
[2017-01-16] MEDS: hydrALAzine 20 MG INJ IV PRN (17:14)
[2017-01-16] MEDS: CIPROFLOXACIN 0.3% 2.5 ML OPH BOTH EYES SCH ×2 (17:30→21:00)
[2017-01-16 19:32] VITALS: BP 126/66; RESP 20
[2017-01-16 19:41] VITALS: BP 126/68; PULSE 68; RESP 18
[2017-01-16 19:56] VITALS: BP 136/71; RESP 18
[2017-01-16] MEDS: ONDANSETRON 4 MG INJ IV PRN (22:17)
[2017-01-16] MEDS: HALOPERIDOL 5 MG INJ IM PRN (23:30)
[2017-01-17 00:22] VITALS: BP 140/80; PULSE 74; RESP 18
[2017-01-17] MEDS: CIPROFLOXACIN 0.3% 2.5 ML OPH BOTH EYES SCH ×6 (01:00→20:11)
[2017-01-17] MEDS: morphine 2 MG INJ IV PRN ×3 (03:17→14:39)
[2017-01-17] MEDS: DEXTROSE 5%-0.9% NACL 1,000 ML IV SCH ×2 (06:31→16:55)
[2017-01-17 06:36] LABS: CALCIUM 8.3 mg/dl (8.4-10.2); CREATININE 0.45 mg/dl (0.44-1.00); POTASSIUM 4.2 mmol/L (3.5-5.1)
[2017-01-17] MEDS: DULOXETINE 30 MG CAP DR PO SCH (08:49)
[2017-01-17] MEDS: VALSARTAN 160 MG TAB PO SCH ×2 (08:50→20:10)
[2017-01-17] MEDS: ISOSORBIDE MONONITRATE(SR)30 MG TAB PO SCH (08:50)
[2017-01-17] MEDS: FISH OIL 1,000 MG CAP PO SCH ×2 (08:50→21:00)
--- NOTE | 2017-01-17 11:57 | PN ---
Date/Time of Note Date/Time of Note DATE: 01/17/17 TIME: 11:52 Assessment/Plan VTE Prophylaxis VTE Prophylaxis Intervention: SCD's Lines/Catheters IV Catheter Type (from Nrsg): Peripheral IV Urinary Cath still in place: Yes Reason Cath still needed: other (indicate) (Monitor urine output) Assessment/Plan Assessment/Plan 81-year-old female with: 1. 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 Plan for post percutaneous CT-guided liver mass biopsy with interventional radiology tomorrow. S/p vitamin K yesterday, we will recheck PT and INR tomorrow morning N.p.o. after midnight tonight. Also for discharge planning son is interested in half-way facility placement, case management has been notified. Continue pain management with minimum dose of morphine, patient on full liquid diet. 2. Dehydration: Better p.o. intake at least for medications today and also full liquid diet, continue IV fluids. 3. 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 Full liquid diet, n.p.o. after midnight for hopefully liver mass biopsy tomorrow. Pain control with morphine low-dose as needed Continue IV fluids at lower rate 4. Hypertension: Continue current medication in addition of hydralazine as needed, also with clonidine patch on board. 5. Mild dementia: Likely slightly exacerbated currently with acute findings. Stable, cooperative Continue outpatient medication as tolerated. Monitor. Prophylaxis: SCDs for DVT prophylaxis, Pepcid for GI prophylaxis Disposition: CT-guided percutaneous biopsy of 1 of the liver masses, hopefully can be done tomorrow. Also at discharge son is interested in half-way facility. Subjective 24 Hr Interval Summary Free Text/Dictation Patient seems more awake this morning, she denies pain currently, she is on full liquid with plan of n.p.o. after midnight for possible liver biopsy in the morning. Eyedrops have been started for discharges from her eyes. According to the son has been chronic. Exam/Review of Systems Vital Signs Vitals Vital Signs Date Time Temp Pulse Resp B/P Pulse Ox O2 Delivery O2 Flow Rate FiO2 01/17/17 00:22 98.2 74 18 140/80 95 Room Air 01/16/17 08:00 2.0 Intake and Output 01/16/17 01/16/17 01/17/17 15:00 23:00 07:00 Intake Total 602 ml 1220 ml 1200 ml Output Total 1000 ml 1400 ml Balance 602 ml 220 ml -200 ml Exam Constitutional: alert, frail, oriented (x2) Respiratory: clear to auscultation, normal air movement Cardiovascular: nl pulses, regular rate and rhythm Gastrointestinal: non-tender (No complaint), soft Musculoskeletal: nl extremities to inspection Extremities: other (No edema, clubbing or cyanosis) Neurological: STILL RUNNER II-XII intact, lethargic (Improved), nl mental status (At baseline), nl speech (At baseline ), other (Generalized weakness) Results Result Diagram: 01/16/17 0431 01/17/17 0458 Results 24 hrs Laboratory Tests Test 01/17/17 04:58 Sodium Level 137 Potassium Level 4.2 Chloride Level 98 Carbon Dioxide Level 25 Anion Gap 18 H Blood Urea Nitrogen 4 L Creatinine 0.45 Glucose Level 125 Calcium Level 8.3 L Medications Medications Current Medications Duloxetine HCl (Cymbalta) 30 mg DAILY PO Last administered on 01/17/17 08:49; Admin Dose 30 MG; Start 01/13/17 at 09:00 Fish Oil (Fish Oil) 2,000 mg BID PO Last administered on 01/17/17 08:50; Admin Dose 2,000 MG; Start 01/13/17 at 09:00 Quetiapine Fumarate (Seroquel) 25 mg Q4H PRN PO agitation Last administered on 01/13/17 23:39; Admin Dose 25 MG; Start 01/13/17 at 02:30 Haloperidol (Haldol) 1 mg Q4H PRN IM agitation Last administered on 01/16/17 23:30; Admin Dose 1 MG; Start 01/13/17 at 02:30 Acetaminophen (Tylenol Tab) 650 mg Q4H PRN PO pain/fever; Start 01/13/17 at 02: 30 Morphine Sulfate (morphine) 2 mg Q2H PRN IV pain Last administered on 06:28; Admin Dose 2 MG; Start 01/13/17 at 02:30 Ondansetron HCl (Zofran Inj) 4 mg Q4H PRN IV nausea Last administered on 22:17; Admin Dose 4 MG; Start 01/13/17 at 02:30 Isosorbide Mononitrate (Imdur) 30 mg DAILY PO Last administered on 01/17/17 08 :50; Admin Dose 30 MG; Start 01/15/17 at 09:00 Valsartan (Diovan) 160 mg BID PO Last administered on 01/17/17 08:50; Admin Dose 160 MG; Start 01/14/17 at 21:00 Clonidine HCl (Catapres-Tts 2 Patch) 1 patch Q7D TRANSDERM Last administered on 01/15/17 17:17; Admin Dose 1 PATCH; Start 01/15/17 at 15:00 Morphine Sulfate (morphine) 1 mg Q4H PRN IV PAIN LEVEL 4-7 Last administered on 01/15/17 14:53; Admin Dose 1 MG; Start 01/15/17 at 15:00 Hydralazine HCl 10 mg 10 mg Q6H PRN IV SBP>160 Last administered on 01/16/17 17:14; Admin Dose 10 MG; Start 01/15/17 at 20:30 Dextrose/Sodium Chloride (D5-NS) 1,000 ml @ 100 mls/hr Q10H IV Last administered on 01/17/17 06:31; Admin Dose 100 MLS/HR; Start 01/16/17 at 11:00 Ciprofloxacin HCl (Ciloxan 0.3% Oph) 2 drop Q4 BOTH EYES Last administered on 08:50; Admin Dose 2 DROP; Start 01/16/17 at 17:30; Stop 01/23/17 at 13: 01 NASIMA PRICE Jan 17, 2017 11:57
[2017-01-17] MEDS: HALOPERIDOL 5 MG INJ IM PRN (14:07)
--- NOTE | 2017-01-17 16:18 | CONS ---
Date/Time of Note Date/Time of Note DATE: 01/17/17 TIME: 16:17 Assessment/Plan Assessment/Plan Additional Assessment/Plan S/P ERCP with Pancreatic cancer Abnormal Electrocardiogram V. Tach/ V. Fib Hypertension Continue Imdur Continue Diovan Continue Catapres Continue Pain Meds as scheduled Consultation Date/Type/Reason Admit Date/Time Jan 13, 2017 at 02:01 Initial Consult Date Type of Consultation: cardiology Referring Provider: NASIMA PRICE Exam/Review of Systems Vital Signs Vitals Vital Signs Date Time Temp Pulse Resp B/P Pulse Ox O2 Delivery O2 Flow Rate FiO2 01/17/17 00:22 98.2 74 18 140/80 95 Room Air 01/16/17 08:00 2.0 Intake and Output 01/16/17 01/16/17 01/17/17 15:00 23:00 07:00 Intake Total 602 ml 1220 ml 1200 ml Output Total 1000 ml 1400 ml Balance 602 ml 220 ml -200 ml Exam Psych: no complaints Head: atraumatic, normocephalic Neck: non-tender, supple Respiratory: clear to auscultation Cardiovascular: regular rate and rhythm Gastrointestinal: non-tender, soft Extremities: normal pulses Results Result Diagram: 01/16/17 0431 01/17/17 0458 Results 24 hrs Laboratory Tests Test 01/17/17 04:58 Sodium Level 137 Potassium Level 4.2 Chloride Level 98 Carbon Dioxide Level 25 Anion Gap 18 H Blood Urea Nitrogen 4 L Creatinine 0.45 Glucose Level 125 Calcium Level 8.3 L Medications Medications Current Medications Duloxetine HCl (Cymbalta) 30 mg DAILY PO Last administered on 01/17/17 08:49; Admin Dose 30 MG; Start 01/13/17 at 09:00 Fish Oil (Fish Oil) 2,000 mg BID PO Last administered on 01/17/17 08:50; Admin Dose 2,000 MG; Start 01/13/17 at 09:00 Quetiapine Fumarate (Seroquel) 25 mg Q4H PRN PO agitation Last administered on 01/13/17 23:39; Admin Dose 25 MG; Start 01/13/17 at 02:30 Haloperidol (Haldol) 1 mg Q4H PRN IM agitation Last administered on 01/17/17 14:07; Admin Dose 1 MG; Start 01/13/17 at 02:30 Acetaminophen (Tylenol Tab) 650 mg Q4H PRN PO pain/fever; Start 01/13/17 at 02: 30 Morphine Sulfate (morphine) 2 mg Q2H PRN IV pain Last administered on 14:39; Admin Dose 2 MG; Start 01/13/17 at 02:30 Ondansetron HCl (Zofran Inj) 4 mg Q4H PRN IV nausea Last administered on 22:17; Admin Dose 4 MG; Start 01/13/17 at 02:30 Isosorbide Mononitrate (Imdur) 30 mg DAILY PO Last administered on 01/17/17 08 :50; Admin Dose 30 MG; Start 01/15/17 at 09:00 Valsartan (Diovan) 160 mg BID PO Last administered on 01/17/17 08:50; Admin Dose 160 MG; Start 01/14/17 at 21:00 Clonidine HCl (Catapres-Tts 2 Patch) 1 patch Q7D TRANSDERM Last administered on 01/15/17 17:17; Admin Dose 1 PATCH; Start 01/15/17 at 15:00 Morphine Sulfate (morphine) 1 mg Q4H PRN IV PAIN LEVEL 4-7 Last administered on 01/15/17 14:53; Admin Dose 1 MG; Start 01/15/17 at 15:00 Hydralazine HCl 10 mg 10 mg Q6H PRN IV SBP>160 Last administered on 01/16/17 17:14; Admin Dose 10 MG; Start 01/15/17 at 20:30 Dextrose/Sodium Chloride (D5-NS) 1,000 ml @ 100 mls/hr Q10H IV Last administered on 01/17/17 06:31; Admin Dose 100 MLS/HR; Start 01/16/17 at 11:00 Ciprofloxacin HCl (Ciloxan 0.3% Oph) 2 drop Q4 BOTH EYES Last administered on 14:01; Admin Dose 2 DROP; Start 01/16/17 at 17:30; Stop 01/23/17 at 13: 01 FRED FRYE M.D. Jan 17, 2017 16:18
[2017-01-17 19:36] VITALS: BP 160/91; RESP 16
[2017-01-17 21:14] VITALS: BP 146/110
--- NOTE | 2017-01-17 22:03 | PN ---
DATE: 01/17/2017 The patient was seen by me because of metastatic liver disease and obstructed bile duct. ERCP was performed, stents were placed both into left and right hepatic ducts. PHYSICAL EXAMINATION: GENERAL: Patient is alert, awake, she is noncommunicative. VITAL SIGNS: The blood pressure is 140/80, pulse is 74. LABORATORY: WBC: 10,000, hemoglobin 14.0, potassium 4.2. AST 126, ALT 77, alk phos 208. IMPRESSION: Patient with metastatic liver disease probably most likely source of primary carcinomas is pancreatic carcinoma. Serum CA 19-9 is elevated. CEA and CA-125 are normal. Alpha- fetoprotein is normal. Clinical impression metastatic disease probably primary carcinoma is pancreas. PLAN: At this time she is scheduled to have a biopsy of the liver and probably pancreas. Dictated By: Cal Sampson MD /marimar/ /Document#: [id number] CC: Brian Benoit MD;*EndCC*
[2017-01-17] MEDS: QUETIAPINE 25 MG TAB PO PRN (23:16)
[2017-01-17 23:27] VITALS: Ht 157.5 cm; Wt 58.0 kg
[2017-01-18] VITALS (15 sets, daily range): BP systolic 123–159; BP diastolic 60–101; PULSE 86–104; RESP 13–20
[2017-01-18] MEDS: CIPROFLOXACIN 0.3% 2.5 ML OPH BOTH EYES SCH ×6 (00:19→20:18)
[2017-01-18] MEDS: hydrALAzine 20 MG INJ IV PRN ×2 (00:19→18:02)
[2017-01-18] MEDS: morphine 2 MG INJ IV PRN ×3 (01:15→18:02)
[2017-01-18] MEDS: DEXTROSE 5%-0.9% NACL 1,000 ML IV SCH ×3 (03:22→23:00)
[2017-01-18 05:53] LABS: INR 1.44; PROTIME 17.6 Sec (12.2-14.2); PT RATIO 1.4
[2017-01-18 05:54] LABS: PARTIAL THROMBOPLASTIN TIME 32.5 Sec (25.0-35.0)
[2017-01-18 05:56] LABS: MAGNESIUM 1.5 mg/dl (1.7-2.5); PHOSPHORUS 2.7 mg/dl (2.5-4.9)
[2017-01-18 06:00] LABS: CALCIUM 8.3 mg/dl (8.4-10.2); CREATININE 0.5 mg/dl (0.44-1.00); POTASSIUM 3.6 mmol/L (3.5-5.1)
[2017-01-18] MEDS: DULOXETINE 30 MG CAP DR PO SCH (09:00)
[2017-01-18] MEDS: FISH OIL 1,000 MG CAP PO SCH ×2 (09:00→20:55)
[2017-01-18] MEDS: ISOSORBIDE MONONITRATE(SR)30 MG TAB PO SCH (09:00)
[2017-01-18] MEDS: VALSARTAN 160 MG TAB PO SCH ×2 (09:00→20:12)
--- NOTE | 2017-01-18 11:22 | RADRPT ---
Vent Rate: 104 bpm RR Interval: 0 msec MA Interval: 150 msec QRS Duration: 68 msec QT Interval: 366 msec QTC Interval: 481 msec P-R-T Jackson: 41 - 62 - 28 degrees Sinus tachycardia with fusion complexes Septal infarct , age undetermined Abnormal ECG Electronically Signed By: Rustam Ruvalcaba [id number]
--- NOTE | 2017-01-18 13:22 | CONS ---
DATE OF ADMISSION: 01/13/2017 DATE OF CONSULTATION: 01/14/2017 REASON FOR CONSULTATION: Preoperative evaluation. REQUESTING PHYSICIAN: Brian Benoit MD HISTORY OF PRESENT ILLNESS: Ms. Ye is an 81-year-old female with a history of hypertension, dyslipidemia, dementia, nonobstructive coronary artery disease, who initially presented with generalized weakness, fatigue, abdominal discomfort. Upon arrival in the emergency department, temperature 98.3 degrees, blood pressure 129/79, pulse 89, respiratory rate 20, saturating 96 percent. Patient's labs: Sodium 139, potassium 3.7, creatinine 0.7, BUN 18, AST 117, ALT 71, troponin negative, lipase 567, CA 19-9 of 201, CA-125 35.6, INR 1.1. The patient underwent a chest x-ray revealing mild cardiomegaly and aortic atherosclerosis. The patient underwent a head CT revealing no acute stroke or hemorrhage,relative atrophy, white matter disease. Gallbladder ultrasound revealed a large heterogeneous liver appearance suggesting multiple masses (largest 9.2 x 0.3 cm), concerning for metastatic disease, gallbladder not identified. The patient had abdominal pelvic CT revealing numerous large and small liver lesions metastatic disease, colonic diverticulosis, atrophy and dilatation of pancreatic duct within the distal body and tail possibly due to chronic pancreatitis. The patient had a chest CT that revealed no visualized lung nodule or mass, continued presence of multiple masses throughout the liver raising suspicion for malignancy, metastatic disease, dependent atelectasis in both lungs. And finally the patient underwent an MRCP which revealed obstruction of the main pancreatic duct in the body of pancreas,pancreatic duct dilatation and parenchymal atrophy causative for obstruction is likely 1.2 x 2.1 cm mass in the pancreatic neck and body concerning for pancreatic cancer. Multiple hepatic masses and hepatomegaly are in keeping with likely metastatic disease. The patient subsequently has now been admitted to the floor and since admission to the floor, the patient has had some elevated systolic blood pressures and some mild tachycardia to the 100s. The patient's electrocardiogram from today reveals sinus tach at rate of 104, normal axis, normal intervals, nonspecific ST-T abnormalities, borderline septal cues. The patient at this time is not clearly responding to questioning, complaining of chest pain, shortness of breath, and kind of just generally points to her epigastric region. PAST MEDICAL HISTORY: As above in HPI, patient undergoing left heart catheterization in 2013 during which time, she had no significant coronary artery disease and normal ejection fraction, but had an episode of VT/VF which was quickly reverted by injection into her right conus branch on testing. MEDICATION: Currently in hospital 1. Magnesium sulfate. 2. Hydralazine p.r.n. 3. Cymbalta. 4. Imdur 30 mg p.o. b.i.d. 5. Diovan 160 mg daily. 6. Fish oil 2 g b.i.d. 7. Seroquel. 8. Haldol. 9. Tylenol. 10. Morphine. 11. Zofran. ALLERGIES: NO KNOWN DRUG ALLERGIES. SOCIAL HISTORY: No tobacco, EtOH, illicit drug use. FAMILY HISTORY: Negative for sudden cardiac or early CAD. REVIEW OF SYSTEMS: As above in HPI. CONSTITUTIONAL: No fevers, chills. RESPIRATORY: No current shortness of breath. CARDIOVASCULAR: No current chest pain. GASTROINTESTINAL: Abdominal pain, possible pancreatic cancer. GENITOURINARY: No hematuria. MUSCULOSKELETAL: Degenerative joint disease. PSYCH: Positive psychiatric history. NEUROLOGIC: Altered mental state. PHYSICAL EXAMINATION: VITAL SIGNS: Temperature 98.1 degrees, blood pressure most recently 157/90, pulse 100, respirations 19, saturating 96 percent. GENERAL: The patient is lethargic but arousable. NECK: JVP of approximately 8 cm water. CHEST: Fair mildly decreased breath sounds at the bases bilaterally. HEART: Regular rate and rhythm. Normal S1, S2. One out of 6 systolic murmur. Nondisplaced PMI. ABDOMEN: Positive bowel sounds. Soft, mild diffuse tenderness to palpation. EXTREMITIES: No edema. One-plus pulses bilaterally LABORATORY: As above in HPI. Most recently today white count 7.8, hemoglobin 12, platelet count 193,000. Sodium 140, potassium 4.2, creatinine 0.5, BUN 8. Troponin negative times three. IMAGING STUDIES: As above in HPI. No further imaging studies are reviewed at this time. ECG as above in HPI. No further electrocardiogram is reviewed at this time. IMPRESSION: 1. Preoperative evaluation prior to ERCP for treatment of pancreatic duct obstruction, possible pancreatic cancer. 2. Electrocardiogram with nonspecific ST-T abnormalities and negative troponin times three since admit, and cath in 2013 revealing no significant obstructive disease. 3. Tachycardia consistent with sinus tachycardia at this time. 4. History of cardiac arrhythmias, in sinus tach at this time. 5. Abdominal pain. 6. Liver masses possibly secondary to metastatic disease. 7. Possible pancreatic carcinoma. 8. Increased lipase possibly secondary to obstruction of the duct. 9. Increased tumor markers. 10. Altered mental state. RECOMMENDATIONS: 1. At this time the patient has mildly elevated blood pressure and mildly elevated heart rate. This is likely due to the patient's discomfort. The patient has undergone a 2D echo revealing normal EF with no significant valve abnormalities and has negative troponins times three. The patient's last catheterization in 2013 revealed no significant obstructive disease, but was complicated by episode of brief VT/VF likely from injection into the right conus branch. Thus, at this time, the patient has no cardiac contraindications to proceeding to ERCP for treatment of pancreatic duct obstruction. The patient is at moderate risk for cardiovascular complications. Postoperatively would watch closely for signs and symptoms of cardiac complications including but not limited to, the onset of chest pain, shortness of breath, congestive heart failure, uncontrolled cardiac arrhythmias. 2. At this time would continue the patient's Imdur as tolerated and likely place a clonidine patch on the patient to improve overall systolic blood pressure control. 3. Continue the patient's Diovan with up-titration as necessary to improve overall systolic blood pressure control. 4. Pending GI procedure for further evaluation of possible pancreatic cancer and pancreatic duct obstruction. Thank you for allowing me to take part in the care of this patient. I will continue to follow closely with you. Dictated By: May Navarro /fnt/clp /Document#: [id number] CC: Brian Benoit MD;*End* SERGIO
--- NOTE | 2017-01-18 15:15 | PN ---
Date/Time of Note Date/Time of Note DATE: 01/18/17 TIME: 15:07 Assessment/Plan VTE Prophylaxis VTE Prophylaxis Intervention: SCD's Lines/Catheters IV Catheter Type (from Nrs): Peripheral IV Urinary Cath still in place: Yes Reason Cath still needed: other (indicate) (Monitor urine output) Assessment/Plan Assessment/Plan 81-year-old female with: 1. 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 Plan for post percutaneous CT-guided liver mass biopsy with interventional radiology today. N.p.o. for biopsy today. Also for discharge planning son is interested in half-way facility placement, case management has been notified. Continue pain management with minimum dose of morphine, patient on full liquid diet otherwise 2. Dehydration: Better p.o. intake at least for medications today and also full liquid diet, continue IV fluids. 3. 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 Full liquid diet, n.p.o. after midnight for hopefully liver mass biopsy tomorrow. Pain control with morphine low-dose as needed Continue IV fluids at lower rate 4. Hypertension: Continue current medication in addition of hydralazine as needed, also with clonidine patch on board. 5. Mild dementia: Likely slightly exacerbated currently with acute findings. Stable, cooperative Continue outpatient medication as tolerated. Monitor. Prophylaxis: SCDs for DVT prophylaxis, Pepcid for GI prophylaxis Disposition: CT-guided percutaneous biopsy of 1 of the liver masses this afternoon. Also at discharge son is interested in half-way facility. Discharge planning the next 48 hours to half-way facility, if family still willing to go there otherwise home discharge planning. Subjective 24 Hr Interval Summary Free Text/Dictation Patient remains stable, No further complaints, awaiting liver biopsy this afternoon. Exam/Review of Systems Vital Signs Vitals Vital Signs Date Time Temp Pulse Resp B/P Pulse Ox O2 Delivery O2 Flow Rate FiO2 01/18/17 08:25 98.2 100 20 132/101 98 01/17/17 00:22 Room Air 01/16/17 08:00 2.0 Intake and Output 01/17/17 01/17/17 01/18/17 15:00 23:00 07:00 Intake Total 1120 ml 1350 ml Output Total 400 ml 550 ml Balance 720 ml 800 ml Exam Constitutional: alert, oriented (x2) Respiratory: clear to auscultation, normal air movement Cardiovascular: nl pulses, regular rate and rhythm Gastrointestinal: soft, tender (Epigastric, relieved with morphine.) Musculoskeletal: nl extremities to inspection Extremities: normal pulses, other (No edema, clubbing or cyanosis) Results Result Diagram: 01/16/17 0431 01/18/17 0502 Results 24 hrs Laboratory Tests Test 01/18/17 05:02 Prothrombin Time 17.6 H Prothrombin Time Ratio 1.4 INR International Normalized Ratio 1.44 Activated Partial Thromboplast Time 32.5 Sodium Level 134 L Potassium Level 3.6 Chloride Level 102 Carbon Dioxide Level 23 Anion Gap 13 Blood Urea Nitrogen 5 L Creatinine 0.50 Glucose Level 133 Calcium Level 8.3 L Phosphorus Level 2.7 Magnesium Level 1.5 L Medications Medications Current Medications Duloxetine HCl (Cymbalta) 30 mg DAILY PO Last administered on 01/17/17 08:49; Admin Dose 30 MG; Start 01/13/17 at 09:00 Fish Oil (Fish Oil) 2,000 mg BID PO Last administered on 01/17/17 08:50; Admin Dose 2,000 MG; Start 01/13/17 at 09:00 Quetiapine Fumarate (Seroquel) 25 mg Q4H PRN PO agitation Last administered on 01/17/17 23:16; Admin Dose 25 MG; Start 01/13/17 at 02:30 Haloperidol (Haldol) 1 mg Q4H PRN IM agitation Last administered on 01/17/17 14:07; Admin Dose 1 MG; Start 01/13/17 at 02:30 Acetaminophen (Tylenol Tab) 650 mg Q4H PRN PO pain/fever; Start 01/13/17 at 02: 30 Morphine Sulfate (morphine) 2 mg Q2H PRN IV pain Last administered on 09:13; Admin Dose 2 MG; Start 01/13/17 at 02:30 Ondansetron HCl (Zofran Inj) 4 mg Q4H PRN IV nausea Last administered on 22:17; Admin Dose 4 MG; Start 01/13/17 at 02:30 Isosorbide Mononitrate (Imdur) 30 mg DAILY PO Last administered on 01/17/17 08 :50; Admin Dose 30 MG; Start 01/15/17 at 09:00 Valsartan (Diovan) 160 mg BID PO Last administered on 01/17/17 20:10; Admin Dose 160 MG; Start 01/14/17 at 21:00 Clonidine HCl (Catapres-Tts 2 Patch) 1 patch Q7D TRANSDERM Last administered on 01/15/17 17:17; Admin Dose 1 PATCH; Start 01/15/17 at 15:00 Morphine Sulfate (morphine) 1 mg Q4H PRN IV PAIN LEVEL 4-7 Last administered on 01/15/17 14:53; Admin Dose 1 MG; Start 01/15/17 at 15:00 Hydralazine HCl 10 mg 10 mg Q6H PRN IV SBP>160 Last administered on 01/18/17 00:19; Admin Dose 10 MG; Start 01/15/17 at 20:30 Dextrose/Sodium Chloride (D5-NS) 1,000 ml @ 100 mls/hr Q10H IV Last administered on 01/18/17 13:05; Admin Dose 100 MLS/HR; Start 01/16/17 at 11:00 Ciprofloxacin HCl (Ciloxan 0.3% Oph) 2 drop Q4 BOTH EYES Last administered on 13:03; Admin Dose 2 DROP; Start 01/16/17 at 17:30; Stop 01/23/17 at 13: 01 NASIMA PRICE Jan 18, 2017 15:15
[2017-01-18] MEDS ORDERED: FENTAnyl 50 MCG/ML VIAL ONE (16:26)
[2017-01-18] MEDS ORDERED: PROPOFOL 60 ML ONE (16:26)
[2017-01-18] MEDS ORDERED: MIDAZOLAM 1 MG/ML 2 ML INJ ONE (16:26)
[2017-01-18] MEDS ORDERED: LIDOCAINE 1% (MDV) 20 ML INJ ONE (16:41)
--- NOTE | 2017-01-18 17:24 | CONS ---
Date/Time of Note Date/Time of Note DATE: 01/18/17 TIME: 17:23 Assessment/Plan Assessment/Plan Additional Assessment/Plan Pt in having Bx now - I spoke with the son - will await biopsy results. Consultation Date/Type/Reason Admit Date/Time Jan 13, 2017 at 02:01 Initial Consult Date Type of Consultation: cardiology Referring Provider: NASIMA PRICE Exam/Review of Systems Vital Signs Vitals Vital Signs Date Time Temp Pulse Resp B/P Pulse Ox O2 Delivery O2 Flow Rate FiO2 01/18/17 08:25 98.2 100 20 132/101 98 01/17/17 00:22 Room Air 01/16/17 08:00 2.0 Intake and Output 01/17/17 01/17/17 01/18/17 15:00 23:00 07:00 Intake Total 1120 ml 1350 ml Output Total 400 ml 550 ml Balance 720 ml 800 ml Results Result Diagram: 01/16/17 0431 01/18/17 0502 Results 24 hrs Laboratory Tests Test 01/18/17 05:02 Prothrombin Time 17.6 H Prothrombin Time Ratio 1.4 INR International Normalized Ratio 1.44 Activated Partial Thromboplast Time 32.5 Sodium Level 134 L Potassium Level 3.6 Chloride Level 102 Carbon Dioxide Level 23 Anion Gap 13 Blood Urea Nitrogen 5 L Creatinine 0.50 Glucose Level 133 Calcium Level 8.3 L Phosphorus Level 2.7 Magnesium Level 1.5 L Medications Medications Current Medications Duloxetine HCl (Cymbalta) 30 mg DAILY PO Last administered on 01/17/17 08:49; Admin Dose 30 MG; Start 01/13/17 at 09:00 Fish Oil (Fish Oil) 2,000 mg BID PO Last administered on 01/17/17 08:50; Admin Dose 2,000 MG; Start 01/13/17 at 09:00 Quetiapine Fumarate (Seroquel) 25 mg Q4H PRN PO agitation Last administered on 01/17/17 23:16; Admin Dose 25 MG; Start 01/13/17 at 02:30 Haloperidol (Haldol) 1 mg Q4H PRN IM agitation Last administered on 01/17/17 14:07; Admin Dose 1 MG; Start 01/13/17 at 02:30 Acetaminophen (Tylenol Tab) 650 mg Q4H PRN PO pain/fever; Start 01/13/17 at 02: 30 Morphine Sulfate (morphine) 2 mg Q2H PRN IV pain Last administered on 09:13; Admin Dose 2 MG; Start 01/13/17 at 02:30 Ondansetron HCl (Zofran Inj) 4 mg Q4H PRN IV nausea Last administered on 22:17; Admin Dose 4 MG; Start 01/13/17 at 02:30 Isosorbide Mononitrate (Imdur) 30 mg DAILY PO Last administered on 01/17/17 08 :50; Admin Dose 30 MG; Start 01/15/17 at 09:00 Valsartan (Diovan) 160 mg BID PO Last administered on 01/17/17 20:10; Admin Dose 160 MG; Start 01/14/17 at 21:00 Clonidine HCl (Catapres-Tts 2 Patch) 1 patch Q7D TRANSDERM Last administered on 01/15/17 17:17; Admin Dose 1 PATCH; Start 01/15/17 at 15:00 Morphine Sulfate (morphine) 1 mg Q4H PRN IV PAIN LEVEL 4-7 Last administered on 01/15/17 14:53; Admin Dose 1 MG; Start 01/15/17 at 15:00 Hydralazine HCl 10 mg 10 mg Q6H PRN IV SBP>160 Last administered on 01/18/17 00:19; Admin Dose 10 MG; Start 01/15/17 at 20:30 Dextrose/Sodium Chloride (D5-NS) 1,000 ml @ 100 mls/hr Q10H IV Last administered on 01/18/17 13:05; Admin Dose 100 MLS/HR; Start 01/16/17 at 11:00 Ciprofloxacin HCl (Ciloxan 0.3% Oph) 2 drop Q4 BOTH EYES Last administered on 13:03; Admin Dose 2 DROP; Start 01/16/17 at 17:30; Stop 01/23/17 at 13: 01 WILL PATRICK MD Jan 18, 2017 17:24
--- NOTE | 2017-01-18 17:31 | RADRPT ---
PROCEDURE: CT GUIDED PERCUTANEOUS LIVER MASS BIOPSY. CLINICAL INDICATION: Liver mass TECHNIQUE: Informed consent was obtained from the patient's son following careful explanation of the risks and benefits of the procedure. The procedure was done under general anesthesia. 1% lidocaine was used f or local anesthetic. DLP 205.08 mGycm CTDIvol 6.50 mGy The patient was placed supine on the CT table. Multiple axial CT images through the abdomen were acq uired without contrast. The liver mass was localized. A site in the patient's right upper abdomen wa s selected and marked. The area was prepped and draped in the usual sterile fashion. 1% lidocaine w as utilized. Under CT guidance a 20 gauge co-axial core biopsy needle was advanced into the mass. 3 core biopsy specimens obtained with a biopsy gun. Tissue specimen submitted in formalin to patholog y for interpretation. A sterile dressing was applied. There were no immediate complications. COMPARISON: CT abdomen/pelvis from 01/13/2017 FINDINGS: Lesions throughout the liver. RPTAT: AA IMPRESSION: Uncomplicated CT-guided biopsy of a mass in the right lobe of the liver.. Physician Thanh Date Time Electronically viewed and signed by Physician Thanh on 01/18/2017 17:31 /
--- NOTE | 2017-01-18 21:36 | CONS ---
Date/Time of Note Date/Time of Note DATE: 01/18/17 TIME: 21:10 Assessment/Plan Assessment/Plan Chief Complaint/Hosp Course 81-year-old female with: #Pancreatic mass with liver lesions -liver bx done today -f/u results -if patient is confirmed to have pancreatic ca, she will need a port a cath in preparation for chemotherapy #CBD dilatation -s/p stent placement -continue to trend T bili #pancreatitis -continue conservative management per primary team Problems: (1) Metastatic cancer Status: Chronic Consultation Date/Type/Reason Admit Date/Time Jan 13, 2017 at 02:01 Date of Consultation: Jan 18, 2017 Type of Consultation: Oncology Reason for Consultation pancreatic cancer Referring Provider: NASIMA PRICE Hx of Present Illness 81-year-old female with dementia and HTN who presented to [facility] ER with generalized weakness x 10 days , inability to tolerate po intake, nausea and non bloody emesis. She was complaining of pain in the epigastric area. In the ER CT scan was done of the abdomen and pelvis which revealed evidence of liver masses and narrowing of the pancreatic duct with CBD dilatation. CA 19-9 was found to be elevated to 201. Pt as since undergone ERCP with stents placed in the right and left hepatic ducts. PT had a liver biopsy today . Results are currently pending. Constitutional: no complaints Respiratory: no complaints Cardiovascular: no complaints Gastrointestinal: decreased appetite, nausea, pain (Epigastric and bilateral upper abdomen), vomiting Genitourinary: no complaints Musculoskeletal: no complaints Skin: no complaints Neurologic: no complaints Psychological: no complaints Past Medical History dementia hypertension s/p cardiac catheterization for chest pain in 201. During the cardiac catheterization, she developed V-tach and admitted the ventricular fibrillation but recovered from the procedure. Past Surgical History cholecystectomy in the 70's Family History Significant Family History: no pertinent family hx Social History Alcohol Use: none Smoking Status: Never smoker Drug Use: none Exam/Review of Systems Vital Signs Vitals Vital Signs Date Time Temp Pulse Resp B/P Pulse Ox O2 Delivery O2 Flow Rate FiO2 01/18/17 19:19 98.3 101 18 148/85 96 01/18/17 19:00 Room Air 01/16/17 08:00 2.0 Intake and Output 01/17/17 01/17/17 01/18/17 15:00 23:00 07:00 Intake Total 1120 ml 1350 ml Output Total 400 ml 550 ml Balance 720 ml 800 ml Exam Constitutional: alert, frail, non-verbal Psych: no complaints Head: normocephalic Eyes: nl conjunctiva ENMT: nl external ears & nose Neck: non-tender, supple Respiratory: clear to auscultation, normal air movement Cardiovascular: regular rate and rhythm Musculoskeletal: nl extremities to inspection Results Result Diagram: 01/16/17 0431 01/18/17 0502 Results 24 hrs Laboratory Tests Test 01/18/17 05:02 Prothrombin Time 17.6 H Prothrombin Time Ratio 1.4 INR International Normalized Ratio 1.44 Activated Partial Thromboplast Time 32.5 Sodium Level 134 L Potassium Level 3.6 Chloride Level 102 Carbon Dioxide Level 23 Anion Gap 13 Blood Urea Nitrogen 5 L Creatinine 0.50 Glucose Level 133 Calcium Level 8.3 L Phosphorus Level 2.7 Magnesium Level 1.5 L Medications Medications Current Medications Duloxetine HCl (Cymbalta) 30 mg DAILY PO Last administered on 01/17/17 08:49; Admin Dose 30 MG; Start 01/13/17 at 09:00 Fish Oil (Fish Oil) 2,000 mg BID PO Last administered on 01/17/17 08:50; Admin Dose 2,000 MG; Start 01/13/17 at 09:00 Quetiapine Fumarate (Seroquel) 25 mg Q4H PRN PO agitation Last administered on 01/17/17 23:16; Admin Dose 25 MG; Start 01/13/17 at 02:30 Haloperidol (Haldol) 1 mg Q4H PRN IM agitation Last administered on 01/17/17 14:07; Admin Dose 1 MG; Start 01/13/17 at 02:30 Acetaminophen (Tylenol Tab) 650 mg Q4H PRN PO pain/fever; Start 01/13/17 at 02: 30 Morphine Sulfate (morphine) 2 mg Q2H PRN IV pain Last administered on 18:02; Admin Dose 2 MG; Start 01/13/17 at 02:30 Ondansetron HCl (Zofran Inj) 4 mg Q4H PRN IV nausea Last administered on 22:17; Admin Dose 4 MG; Start 01/13/17 at 02:30 Isosorbide Mononitrate (Imdur) 30 mg DAILY PO Last administered on 01/17/17 08 :50; Admin Dose 30 MG; Start 01/15/17 at 09:00 Valsartan (Diovan) 160 mg BID PO Last administered on 01/18/17 20:12; Admin Dose 160 MG; Start 01/14/17 at 21:00 Clonidine HCl (Catapres-Tts 2 Patch) 1 patch Q7D TRANSDERM Last administered on 01/15/17 17:17; Admin Dose 1 PATCH; Start 01/15/17 at 15:00 Morphine Sulfate (morphine) 1 mg Q4H PRN IV PAIN LEVEL 4-7 Last administered on 01/15/17 14:53; Admin Dose 1 MG; Start 01/15/17 at 15:00 Hydralazine HCl 10 mg 10 mg Q6H PRN IV SBP>160 Last administered on 01/18/17 18:02; Admin Dose 10 MG; Start 01/15/17 at 20:30 Dextrose/Sodium Chloride (D5-NS) 1,000 ml @ 100 mls/hr Q10H IV Last administered on 01/18/17 13:05; Admin Dose 100 MLS/HR; Start 01/16/17 at 11:00 Ciprofloxacin HCl (Ciloxan 0.3% Oph) 2 drop Q4 BOTH EYES Last administered on 20:18; Admin Dose 2 DROP; Start 01/16/17 at 17:30; Stop 01/23/17 at 13: 01 KAYKAY OJEDA M.D. Jan 18, 2017 21:20
[2017-01-18] MEDS: QUETIAPINE 25 MG TAB PO PRN (22:50)
[2017-01-19] MEDS: CIPROFLOXACIN 0.3% 2.5 ML OPH BOTH EYES SCH ×6 (01:00→21:00)
[2017-01-19] MEDS: DEXTROSE 5%-0.9% NACL 1,000 ML IV SCH ×2 (02:51→18:20)
[2017-01-19] MEDS: morphine 2 MG INJ IV PRN (04:53)
[2017-01-19 05:23] LABS: BASOPHILS % 0.3 % (0.0-2.0); EOSINOPHILS # 0.1 10^3/ul (0.0-0.5); EOSINOPHILS % 0.6 % (0.0-7.0); HEMATOCRIT 39.9 % (37.0-47.0); HEMOGLOBIN 13.6 g/dl (12.0-16.0); LYMPHOCYTES # 0.9 10^3/ul (0.8-2.9); LYMPHOCYTES % 10.9 % (15.0-51.0); MEAN CORPUSCULAR HEMOGLOBIN 30.3 pg (29.0-33.0); MEAN CORPUSCULAR HGB CONC 34.1 g/dl (32.0-37.0); MEAN CORPUSCULAR VOLUME 88.9 fl (82.0-101.0); MEAN PLATELET VOLUME 10.6 fl (7.4-10.4); MONOCYTE # 1.2 10^3/ul (0.3-0.9); MONOCYTES % 14.2 % (0.0-11.0); NEUTROPHILS % 73.1 % (39.0-77.0); PLATELET COUNT 180 10^3/UL (140-415); RED BLOOD COUNT 4.49 10^6/ul (4.20-5.40); RED CELL DISTRIBUTION WIDTH 14.6 % (11.5-14.5); WHITE BLOOD COUNT 8.6 10^3/ul (4.8-10.8)
[2017-01-19 05:48] LABS: CALCIUM 8.1 mg/dl (8.4-10.2); CREATININE 0.47 mg/dl (0.44-1.00); POTASSIUM 3.2 mmol/L (3.5-5.1)
[2017-01-19 05:49] LABS: MAGNESIUM 1.4 mg/dl (1.7-2.5); PHOSPHORUS 2.6 mg/dl (2.5-4.9)
[2017-01-19 07:23] VITALS: BP 170/112
[2017-01-19] MEDS: hydrALAzine 20 MG INJ IV PRN (07:33)
[2017-01-19] MEDS: FISH OIL 1,000 MG CAP PO SCH ×2 (09:00→21:02)
--- NOTE | 2017-01-19 09:26 | CONS ---
Date/Time of Note Date/Time of Note DATE: 01/19/17 TIME: 09:23 Assessment/Plan Assessment/Plan Additional Assessment/Plan 1. Preoperative evaluation prior to ERCP for treatment of pancreatic duct obstruction, possible pancreatic cancer. Tolerated procedure well - will monitor clinically. 2. Electrocardiogram with nonspecific ST-T abnormalities and negative troponin times three since admit, and cath in 2013 revealing no significant obstructive disease. 3. Tachycardia consistent with sinus tachycardia at this time- some dehydration likely. 4. History of cardiac arrhythmias, in sinus tach at this time. 5. Abdominal pain. 6. Liver masses possibly secondary to metastatic disease- awaiting Bx results. Possible pancreatic carcinoma.Poor prognosis likely. 8. Increased lipase possibly secondary to obstruction of the duct. 9. Increased tumor markers. 10. Altered mental state. Consultation Date/Type/Reason Admit Date/Time Jan 13, 2017 at 02:01 Type of Consultation: Oncology Referring Provider: NASIMA PRICE 24 HR Interval Summary Free Text/Dictation Confused - tolerated procedure well - if pancreatic CA confirmed, family might consider palliative Rx . ROS: No fever, no chills, no nausea, no vomiting, no diarrhea/constipation + weight loss No chest pain, no PND, no orthopnea No dizziness, blurred vision No thirst, no heat or cold intolerance Exam/Review of Systems Vital Signs Vitals Vital Signs Date Time Temp Pulse Resp B/P Pulse Ox O2 Delivery O2 Flow Rate FiO2 01/19/17 07:23 98.2 114 170/112 97 01/18/17 19:19 18 01/18/17 19:00 Room Air 01/16/17 08:00 2.0 Intake and Output 01/18/17 01/18/17 01/19/17 15:00 23:00 07:00 Intake Total 400 ml 1250 ml Output Total 400 ml 900 ml Balance 0 ml 350 ml Exam General: WN/WD/NAD, AOx 1-2 confused HEENT: Unicetric/atraumatic/EOMI (follows commands) NECK: JVD elevated, no thyromegaly Lymph: no lymphadenopathy HEART: regular with no S3, II/ systolic murmur at apex LUNGS: Coarse sounds ABD: soft, NT, ND, +BS : Intact Neuro: non focal SKIN: chronic changes EXT: trace edema Results Result Diagram: 01/19/1743001/19/17430 Results 24 hrs Laboratory Tests Test 01/19/17 04:31 White Blood Count 8.6 Red Blood Count 4.49 Hemoglobin 13.6 Hematocrit 39.9 Mean Corpuscular Volume 88.9 Mean Corpuscular Hemoglobin 30.3 Mean Corpuscular Hemoglobin Concent 34.1 Red Cell Distribution Width 14.6 H Platelet Count 180 # Mean Platelet Volume 10.6 H Neutrophils % 73.1 Lymphocytes % 10.9 L Monocytes % 14.2 H Eosinophils % 0.6 Basophils % 0.3 Nucleated Red Blood Cells % 0.0 Neutrophils # (Manual) 6.3 Lymphocytes # 0.9 Monocytes # 1.2 H Eosinophils # 0.1 Basophils # 0.0 Nucleated Red Blood Cells # 0.0 Sodium Level 139 Potassium Level 3.2 L Chloride Level 102 Carbon Dioxide Level 23 Anion Gap 17 H Blood Urea Nitrogen 5 L Creatinine 0.47 Glucose Level 114 Calcium Level 8.1 L Phosphorus Level 2.6 Magnesium Level 1.4 L Medications Medications Current Medications Duloxetine HCl (Cymbalta) 30 mg DAILY PO Last administered on 01/17/17 08:49; Admin Dose 30 MG; Start 01/13/17 at 09:00 Fish Oil (Fish Oil) 2,000 mg BID PO Last administered on 01/17/17 08:50; Admin Dose 2,000 MG; Start 01/13/17 at 09:00 Quetiapine Fumarate (Seroquel) 25 mg Q4H PRN PO agitation Last administered on 01/18/17 22:50; Admin Dose 25 MG; Start 01/13/17 at 02:30 Haloperidol (Haldol) 1 mg Q4H PRN IM agitation Last administered on 01/17/17 14:07; Admin Dose 1 MG; Start 01/13/17 at 02:30 Acetaminophen (Tylenol Tab) 650 mg Q4H PRN PO pain/fever; Start 01/13/17 at 02: 30 Morphine Sulfate (morphine) 2 mg Q2H PRN IV pain Last administered on 04:53; Admin Dose 2 MG; Start 01/13/17 at 02:30 Ondansetron HCl (Zofran Inj) 4 mg Q4H PRN IV nausea Last administered on 22:17; Admin Dose 4 MG; Start 01/13/17 at 02:30 Isosorbide Mononitrate (Imdur) 30 mg DAILY PO Last administered on 01/17/17 08 :50; Admin Dose 30 MG; Start 01/15/17 at 09:00 Valsartan (Diovan) 160 mg BID PO Last administered on 01/18/17 20:12; Admin Dose 160 MG; Start 01/14/17 at 21:00 Clonidine HCl (Catapres-Tts 2 Patch) 1 patch Q7D TRANSDERM Last administered on 01/15/17 17:17; Admin Dose 1 PATCH; Start 01/15/17 at 15:00 Morphine Sulfate (morphine) 1 mg Q4H PRN IV PAIN LEVEL 4-7 Last administered on 01/15/17 14:53; Admin Dose 1 MG; Start 01/15/17 at 15:00 Hydralazine HCl 10 mg 10 mg Q6H PRN IV SBP>160 Last administered on 01/19/17 07:33; Admin Dose 10 MG; Start 01/15/17 at 20:30 Dextrose/Sodium Chloride (D5-NS) 1,000 ml @ 100 mls/hr Q10H IV Last administered on 01/19/17 02:51; Admin Dose 100 MLS/HR; Start 01/16/17 at 11:00 Ciprofloxacin HCl (Ciloxan 0.3% Oph) 2 drop Q4 BOTH EYES Last administered on 04:54; Admin Dose 2 DROP; Start 01/16/17 at 17:30; Stop 01/23/17 at 13: 01 WILL PATRICK MD Jan 19, 2017 09:26
[2017-01-19] MEDS: VALSARTAN 160 MG TAB PO SCH ×2 (09:30→21:01)
[2017-01-19] MEDS: QUETIAPINE 25 MG TAB PO PRN ×2 (09:30→17:00)
[2017-01-19] MEDS: DULOXETINE 30 MG CAP DR PO SCH (09:30)
[2017-01-19 09:34] VITALS: BP 150/74
[2017-01-19] MEDS: ISOSORBIDE MONONITRATE(SR)30 MG TAB PO SCH (09:34)
[2017-01-19] MEDS ORDERED: MAGNESIUM SULFATE 4 GM/100 ML 100 ML IVPB ONE (10:00)
[2017-01-19] MEDS ORDERED: POTASSIUM CHLORIDE 250 ML IVPB ONE (10:00)
[2017-01-19 13:48] VITALS: BP 147/67; RESP 18
--- NOTE | 2017-01-19 16:28 | PN ---
Date/Time of Note Date/Time of Note DATE: 01/19/17 TIME: 16:25 Assessment/Plan VTE Prophylaxis VTE Prophylaxis Intervention: SCD's Lines/Catheters IV Catheter Type (from Nrsg): Peripheral IV Assessment/Plan Chief Complaint/Hosp Course 1. Pancreatic mass, liver mass likely metastatic disease consistent with pancreatic carcinoma, unfortunately no biopsy could be obtained during ERCP, patient does have a stent placed, oncology recommending tissue biopsy and outpatient follow-up. Status post CT-guided liver mass biopsy with interventional radiology Also for discharge planning son is interested in fdc facility placement, case management has been notified. Continue pain management with minimum dose of morphine, patient on full liquid diet otherwise 2. Dehydration: Better p.o. intake at least for medications today and also full liquid diet, continue IV fluids. 3. 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 Full liquid diet Pain control with morphine low-dose as needed Continue IV fluids at lower rate 4. Hypertension: Continue current medication in addition of hydralazine as needed, also with clonidine patch on board. 5. Mild dementia: Likely slightly exacerbated currently with acute findings. Stable, cooperative Continue outpatient medication as tolerated. Monitor. Prophylaxis: SCDs for DVT prophylaxis, Pepcid for GI prophylaxis Disposition: At discharge son is interested in fdc facility. Discharge planning the next 1-2 days to fdc facility, if family still willing to go there otherwise home discharge planning. Problems: Subjective 24 Hr Interval Summary Constitutional: no complaints Exam/Review of Systems Vital Signs Vitals Vital Signs Date Time Temp Pulse Resp B/P Pulse Ox O2 Delivery O2 Flow Rate FiO2 01/19/17 13:48 97.5 97 18 147/67 95 01/18/17 19:00 Room Air 01/16/17 08:00 2.0 Intake and Output 01/18/17 01/18/17 01/19/17 15:00 23:00 07:00 Intake Total 400 ml 1250 ml Output Total 400 ml 900 ml Balance 0 ml 350 ml Results Result Diagram: 01/19/17 0431 01/19/17 0431 Results 24 hrs Laboratory Tests Test 01/19/17 04:31 White Blood Count 8.6 Red Blood Count 4.49 Hemoglobin 13.6 Hematocrit 39.9 Mean Corpuscular Volume 88.9 Mean Corpuscular Hemoglobin 30.3 Mean Corpuscular Hemoglobin Concent 34.1 Red Cell Distribution Width 14.6 H Platelet Count 180 # Mean Platelet Volume 10.6 H Neutrophils % 73.1 Lymphocytes % 10.9 L Monocytes % 14.2 H Eosinophils % 0.6 Basophils % 0.3 Nucleated Red Blood Cells % 0.0 Neutrophils # (Manual) 6.3 Lymphocytes # 0.9 Monocytes # 1.2 H Eosinophils # 0.1 Basophils # 0.0 Nucleated Red Blood Cells # 0.0 Sodium Level 139 Potassium Level 3.2 L Chloride Level 102 Carbon Dioxide Level 23 Anion Gap 17 H Blood Urea Nitrogen 5 L Creatinine 0.47 Glucose Level 114 Calcium Level 8.1 L Phosphorus Level 2.6 Magnesium Level 1.4 L Medications Medications Current Medications Duloxetine HCl (Cymbalta) 30 mg DAILY PO Last administered on 01/19/17 09:30; Admin Dose 30 MG; Start 01/13/17 at 09:00 Fish Oil (Fish Oil) 2,000 mg BID PO Last administered on 01/17/17 08:50; Admin Dose 2,000 MG; Start 01/13/17 at 09:00 Quetiapine Fumarate (Seroquel) 25 mg Q4H PRN PO agitation Last administered on 01/18/17 22:50; Admin Dose 25 MG; Start 01/13/17 at 02:30 Haloperidol (Haldol) 1 mg Q4H PRN IM agitation Last administered on 01/17/17 14:07; Admin Dose 1 MG; Start 01/13/17 at 02:30 Acetaminophen (Tylenol Tab) 650 mg Q4H PRN PO pain/fever; Start 01/13/17 at 02: 30 Morphine Sulfate (morphine) 2 mg Q2H PRN IV pain Last administered on 04:53; Admin Dose 2 MG; Start 01/13/17 at 02:30 Ondansetron HCl (Zofran Inj) 4 mg Q4H PRN IV nausea Last administered on 22:17; Admin Dose 4 MG; Start 01/13/17 at 02:30 Isosorbide Mononitrate (Imdur) 30 mg DAILY PO Last administered on 01/19/17 09 :34; Admin Dose 30 MG; Start 01/15/17 at 09:00 Valsartan (Diovan) 160 mg BID PO Last administered on 01/19/17 09:30; Admin Dose 160 MG; Start 01/14/17 at 21:00 Clonidine HCl (Catapres-Tts 2 Patch) 1 patch Q7D TRANSDERM Last administered on 01/15/17 17:17; Admin Dose 1 PATCH; Start 01/15/17 at 15:00 Morphine Sulfate (morphine) 1 mg Q4H PRN IV PAIN LEVEL 4-7 Last administered on 01/15/17 14:53; Admin Dose 1 MG; Start 01/15/17 at 15:00 Hydralazine HCl 10 mg 10 mg Q6H PRN IV SBP>160 Last administered on 01/19/17 07:33; Admin Dose 10 MG; Start 01/15/17 at 20:30 Dextrose/Sodium Chloride (D5-NS) 1,000 ml @ 100 mls/hr Q10H IV Last administered on 01/19/17 02:51; Admin Dose 100 MLS/HR; Start 01/16/17 at 11:00 Ciprofloxacin HCl (Ciloxan 0.3% Oph) 2 drop Q4 BOTH EYES Last administered on 13:38; Admin Dose 2 DROP; Start 01/16/17 at 17:30; Stop 01/23/17 at 13: 01 SHASHANK JOSEPH Jan 19, 2017 16:28
[2017-01-19 19:49] VITALS: BP 135/74; PULSE 74; RESP 18
[2017-01-19] MEDS: HALOPERIDOL 5 MG INJ IM PRN (21:54)
[2017-01-20] MEDS: CIPROFLOXACIN 0.3% 2.5 ML OPH BOTH EYES SCH ×7 (01:05→21:27)
[2017-01-20] MEDS: ONDANSETRON 4 MG INJ IV PRN (01:05)
[2017-01-20] MEDS: morphine 2 MG INJ IV PRN ×3 (03:34→21:57)
[2017-01-20] MEDS: DEXTROSE 5%-0.9% NACL 1,000 ML IV SCH ×2 (05:38→15:50)
[2017-01-20 05:40] LABS: WHITE BLOOD COUNT 9.7 10^3/ul (4.8-10.8)
[2017-01-20 05:41] LABS: HEMATOCRIT 38.6 % (37.0-47.0); HEMOGLOBIN 12.8 g/dl (12.0-16.0); MEAN CORPUSCULAR HEMOGLOBIN 29.4 pg (29.0-33.0); MEAN CORPUSCULAR HGB CONC 33.2 g/dl (32.0-37.0); MEAN CORPUSCULAR VOLUME 88.7 fl (82.0-101.0); PLATELET COUNT 174 10^3/UL (140-415); RED BLOOD COUNT 4.35 10^6/ul (4.20-5.40); RED CELL DISTRIBUTION WIDTH 14.8 % (11.5-14.5)
[2017-01-20 06:06] LABS: POSITIVE DIFF @See below
[2017-01-20 06:17] LABS: CALCIUM 7.8 mg/dl (8.4-10.2); CREATININE 0.46 mg/dl (0.44-1.00); MAGNESIUM 2.2 mg/dl (1.7-2.5); POTASSIUM 3.4 mmol/L (3.5-5.1)
[2017-01-20 07:00] VITALS: BP 180/80; RESP 20
[2017-01-20] MEDS: ISOSORBIDE MONONITRATE(SR)30 MG TAB PO SCH ×2 (09:00→11:44)
[2017-01-20] MEDS: FISH OIL 1,000 MG CAP PO SCH ×3 (09:00→21:00)
[2017-01-20] MEDS: VALSARTAN 160 MG TAB PO SCH ×3 (09:00→21:28)
[2017-01-20] MEDS: DULOXETINE 30 MG CAP DR PO SCH ×2 (09:00→11:42)
[2017-01-20 09:14] LABS: BASOPHILS % (M) 1 % (0-2); BURR CELLS 1+ (0-0); MONOCYTES % (M) 6 % (0-11); OVALOCYTES 1+ (0-0); PLATELET ESTIMATE NORMAL; POIKILOCYTOSIS 3+ (0-0); POLYCHROMASIA 1+ (0-0); SPHEROCYTES 1+ (0-0)
[2017-01-20] MEDS ORDERED: POTASSIUM CHLORIDE 20 MEQ POWDER FOR ORAL SOLN PO ONE (13:00)
--- NOTE | 2017-01-20 13:45 | PN ---
Date/Time of Note Date/Time of Note DATE: 01/20/17 TIME: 13:38 Assessment/Plan VTE Prophylaxis VTE Prophylaxis Intervention: SCD's Lines/Catheters IV Catheter Type (from Nrsg): Peripheral IV Urinary Cath still in place: Yes Reason Cath still needed: other (indicate) (Monitor urine output) Assessment/Plan Assessment/Plan 81-year-old female with: 1. 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 Soft diet with supplements to be resumed Also for discharge planning son is interested in half-way facility placement, case management has been notified. Continue pain management with minimum dose of morphine, patient on soft diet 2. Dehydration: Better p.o. intake at least for medications today and also advancing to soft diet. Continue IV fluids for now 3. 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 Soft diet as tolerated. Pain control with morphine low-dose as needed Continue IV fluids at lower rate 4. Hypertension: Continue current medication in addition of hydralazine as needed, also with clonidine patch on board. 5. Mild dementia: Likely slightly exacerbated currently with acute findings. Stable, cooperative Continue outpatient medication as tolerated. Monitor. Prophylaxis: SCDs for DVT prophylaxis, Pepcid for GI prophylaxis Disposition: Follow-up on report from pathology, likely patient will have to follow-up with oncology as an outpatient as stains will be pending like, discharge to half-way facility in the next 24-48 hours hopefully. Subjective 24 Hr Interval Summary Free Text/Dictation Patient status post liver mass biopsy, according to Dr. Sampson from gastroenterology who had a discussion with pathology, biopsy result is coming back small cell carcinoma type Exam/Review of Systems Vital Signs Vitals Vital Signs Date Time Temp Pulse Resp B/P Pulse Ox O2 Delivery O2 Flow Rate FiO2 01/20/17 07:00 97.4 85 20 180/80 97 01/19/17 19:49 Room Air 01/16/17 08:00 2.0 Intake and Output 01/19/17 01/19/17 01/20/17 15:00 23:00 07:00 Intake Total 100 ml 450 ml 1000 ml Output Total 600 ml 800 ml Balance 100 ml -150 ml 200 ml Exam Constitutional: alert, oriented (x2) Cardiovascular: nl pulses, regular rate and rhythm Gastrointestinal: non-tender, soft Musculoskeletal: nl extremities to inspection Extremities: normal pulses, other (No edema, clubbing or cyanosis) Neurological: [employer] II-XII intact, nl mental status (At baseline), nl speech, other (Generalized weakness) Results Result Diagram: 01/20/179 01/20/179 Results 24 hrs Laboratory Tests Test 01/20/17 04:49 White Blood Count 9.7 Red Blood Count 4.35 Hemoglobin 12.8 Hematocrit 38.6 Mean Corpuscular Volume 88.7 Mean Corpuscular Hemoglobin 29.4 Mean Corpuscular Hemoglobin Concent 33.2 Red Cell Distribution Width 14.8 H Platelet Count 174 Mean Platelet Volume 11.0 H Neutrophils % Segmented Neutrophils % (Manual) 89 H Lymphocytes % Lymphocytes % (Manual) 4 L Monocytes % Monocytes % (Manual) 6 Eosinophils % Basophils % Basophils % (Manual) 1 Nucleated Red Blood Cells % 0.0 Neutrophils # (Manual) Absolute Lymphocytes (Manual) 0.3 L Lymphocytes # Monocytes # Absolute Monocytes (Manual) 0.5 Eosinophils # Basophils # Basophils # (Manual) 0.0 Nucleated Red Blood Cells # Platelet Estimate NORMAL Polychromasia 1+ Poikilocytosis 3+ Spherocytes 1+ Ovalocytes 1+ Sodium Level 134 L Potassium Level 3.4 L Chloride Level 106 Carbon Dioxide Level 20 L Anion Gap 11 Blood Urea Nitrogen 6 L Creatinine 0.46 Glucose Level 119 Calcium Level 7.8 L Magnesium Level 2.2 Medications Medications Current Medications Duloxetine HCl (Cymbalta) 30 mg DAILY PO Last administered on 01/20/17 11:42; Admin Dose 30 MG; Start 01/13/17 at 09:00 Fish Oil (Fish Oil) 2,000 mg BID PO Last administered on 01/20/17 11:43; Admin Dose 2,000 MG; Start 01/13/17 at 09:00 Quetiapine Fumarate (Seroquel) 25 mg Q4H PRN PO agitation Last administered on 01/19/17 17:00; Admin Dose 25 MG; Start 01/13/17 at 02:30 Haloperidol (Haldol) 1 mg Q4H PRN IM agitation Last administered on 01/19/17 21:54; Admin Dose 1 MG; Start 01/13/17 at 02:30 Acetaminophen (Tylenol Tab) 650 mg Q4H PRN PO pain/fever; Start 01/13/17 at 02: 30 Morphine Sulfate (morphine) 2 mg Q2H PRN IV pain Last administered on 03:34; Admin Dose 2 MG; Start 01/13/17 at 02:30 Ondansetron HCl (Zofran Inj) 4 mg Q4H PRN IV nausea Last administered on 01:05; Admin Dose 4 MG; Start 01/13/17 at 02:30 Isosorbide Mononitrate (Imdur) 30 mg DAILY PO Last administered on 01/20/17 11 :44; Admin Dose 30 MG; Start 01/15/17 at 09:00 Valsartan (Diovan) 160 mg BID PO Last administered on 01/20/17 11:43; Admin Dose 160 MG; Start 01/14/17 at 21:00 Clonidine HCl (Catapres-Tts 2 Patch) 1 patch Q7D TRANSDERM Last administered on 01/15/17 17:17; Admin Dose 1 PATCH; Start 01/15/17 at 15:00 Morphine Sulfate (morphine) 1 mg Q4H PRN IV PAIN LEVEL 4-7 Last administered on 01/15/17 14:53; Admin Dose 1 MG; Start 01/15/17 at 15:00 Hydralazine HCl 10 mg 10 mg Q6H PRN IV SBP>160 Last administered on 01/19/17 07:33; Admin Dose 10 MG; Start 01/15/17 at 20:30 Dextrose/Sodium Chloride (D5-NS) 1,000 ml @ 100 mls/hr Q10H IV Last administered on 01/20/17 05:38; Admin Dose 100 MLS/HR; Start 01/16/17 at 11:00 Ciprofloxacin HCl (Ciloxan 0.3% Oph) 2 drop Q4 BOTH EYES Last administered on 11:50; Admin Dose 2 DROP; Start 01/16/17 at 17:30; Stop 01/23/17 at 13: 01 NASIMA PRICE Jan 20, 2017 13:44
[2017-01-20] MEDS: MEGESTROL (40 MG/ML) 10ML CUP PO SCH (14:21)
--- NOTE | 2017-01-20 15:22 | CONS ---
Date/Time of Note Date/Time of Note DATE: 01/20/17 TIME: 15:20 Assessment/Plan Assessment/Plan Additional Assessment/Plan 1. Preoperative evaluation prior to ERCP for treatment of pancreatic duct obstruction, possible pancreatic cancer. Tolerated procedure well - will monitor clinically. 2. Electrocardiogram with nonspecific ST-T abnormalities and negative troponin times three since admit, and cath in 2013 revealing no significant obstructive disease. 3. Tachycardia consistent with sinus tachycardia at this time- some dehydration likely. 4. History of cardiac arrhythmias, in sinus tach at this time. 5. Abdominal pain. 6. Liver masses possibly secondary to metastatic disease- awaiting Bx results. Possible pancreatic carcinoma.Poor prognosis likely. I spoke with DR. Leary - I think family might not wish to have aggressive - will await BX results to delineate care. 8. Increased lipase possibly secondary to obstruction of the duct. 9. Increased tumor markers. 10. Altered mental state. 11. HTN - on high side, will add clonidine patch. Consultation Date/Type/Reason Admit Date/Time Jan 13, 2017 at 02:01 Type of Consultation: Oncology Referring Provider: NASIMA PRICE 24 HR Interval Summary Free Text/Dictation I spoke with DR. Leary - I think family might not wish to have aggressive - will await BX results to delineate care. BP high - add clonidine patch now. ROS: No fever, no chills, no nausea, no vomiting, no diarrhea/constipation No recent weight changes No chest pain, no PND, no orthopnea No dizziness, blurred vision No thirst, no heat or cold intolerance Exam/Review of Systems Vital Signs Vitals Vital Signs Date Time Temp Pulse Resp B/P Pulse Ox O2 Delivery O2 Flow Rate FiO2 01/20/17 07:00 97.4 85 20 180/80 97 01/19/17 19:49 Room Air 01/16/17 08:00 2.0 Intake and Output 01/19/17 01/19/17 01/20/17 15:00 23:00 07:00 Intake Total 100 ml 450 ml 1000 ml Output Total 600 ml 800 ml Balance 100 ml -150 ml 200 ml Exam General: WN/WD/NAD, AOx 1-2 confused HEENT: Unicetric/atraumatic/EOMI (does not follow commands) NECK: JVD elevated, no thyromegaly Lymph: no lymphadenopathy HEART: regular with no S3, II/ systolic murmur at apex LUNGS: Coarse sounds ABD: soft, NT, ND, +BS : Intact Neuro: non focal SKIN: chronic changes EXT: trace edema Results Result Diagram: 01/20/1744801/20/17448 Results 24 hrs Laboratory Tests Test 01/20/17 04:49 White Blood Count 9.7 Red Blood Count 4.35 Hemoglobin 12.8 Hematocrit 38.6 Mean Corpuscular Volume 88.7 Mean Corpuscular Hemoglobin 29.4 Mean Corpuscular Hemoglobin Concent 33.2 Red Cell Distribution Width 14.8 H Platelet Count 174 Mean Platelet Volume 11.0 H Neutrophils % Segmented Neutrophils % (Manual) 89 H Lymphocytes % Lymphocytes % (Manual) 4 L Monocytes % Monocytes % (Manual) 6 Eosinophils % Basophils % Basophils % (Manual) 1 Nucleated Red Blood Cells % 0.0 Neutrophils # (Manual) Absolute Lymphocytes (Manual) 0.3 L Lymphocytes # Monocytes # Absolute Monocytes (Manual) 0.5 Eosinophils # Basophils # Basophils # (Manual) 0.0 Nucleated Red Blood Cells # Platelet Estimate NORMAL Polychromasia 1+ Poikilocytosis 3+ Spherocytes 1+ Ovalocytes 1+ Sodium Level 134 L Potassium Level 3.4 L Chloride Level 106 Carbon Dioxide Level 20 L Anion Gap 11 Blood Urea Nitrogen 6 L Creatinine 0.46 Glucose Level 119 Calcium Level 7.8 L Magnesium Level 2.2 Medications Medications Current Medications Duloxetine HCl (Cymbalta) 30 mg DAILY PO Last administered on 01/20/17 11:42; Admin Dose 30 MG; Start 01/13/17 at 09:00 Fish Oil (Fish Oil) 2,000 mg BID PO Last administered on 01/20/17 11:43; Admin Dose 2,000 MG; Start 01/13/17 at 09:00 Quetiapine Fumarate (Seroquel) 25 mg Q4H PRN PO agitation Last administered on 01/19/17 17:00; Admin Dose 25 MG; Start 01/13/17 at 02:30 Haloperidol (Haldol) 1 mg Q4H PRN IM agitation Last administered on 01/19/17 21:54; Admin Dose 1 MG; Start 01/13/17 at 02:30 Acetaminophen (Tylenol Tab) 650 mg Q4H PRN PO pain/fever; Start 01/13/17 at 02: 30 Morphine Sulfate (morphine) 2 mg Q2H PRN IV pain Last administered on 03:34; Admin Dose 2 MG; Start 01/13/17 at 02:30 Ondansetron HCl (Zofran Inj) 4 mg Q4H PRN IV nausea Last administered on 01:05; Admin Dose 4 MG; Start 01/13/17 at 02:30 Isosorbide Mononitrate (Imdur) 30 mg DAILY PO Last administered on 01/20/17 11 :44; Admin Dose 30 MG; Start 01/15/17 at 09:00 Valsartan (Diovan) 160 mg BID PO Last administered on 01/20/17 11:43; Admin Dose 160 MG; Start 01/14/17 at 21:00 Clonidine HCl (Catapres-Tts 2 Patch) 1 patch Q7D TRANSDERM Last administered on 01/15/17 17:17; Admin Dose 1 PATCH; Start 01/15/17 at 15:00 Morphine Sulfate (morphine) 1 mg Q4H PRN IV PAIN LEVEL 4-7 Last administered on 01/15/17 14:53; Admin Dose 1 MG; Start 01/15/17 at 15:00 Hydralazine HCl 10 mg 10 mg Q6H PRN IV SBP>160 Last administered on 01/19/17 07:33; Admin Dose 10 MG; Start 01/15/17 at 20:30 Dextrose/Sodium Chloride (D5-NS) 1,000 ml @ 100 mls/hr Q10H IV Last administered on 01/20/17 05:38; Admin Dose 100 MLS/HR; Start 01/16/17 at 11:00 Ciprofloxacin HCl (Ciloxan 0.3% Oph) 2 drop Q4 BOTH EYES Last administered on 14:24; Admin Dose 2 DROP; Start 01/16/17 at 17:30; Stop 01/23/17 at 13: 01 Megestrol Acetate (Megace Susp) 800 mg DAILY PO Last administered on 01/20/17 14:21; Admin Dose 800 MG; Start 01/20/17 at 14:00 WILL PATRICK MD Jan 20, 2017 15:22
[2017-01-20] MEDS ORDERED: CLONIDINE 0.1 MG/24 HR PATCH TRANSDERM SCH (16:30)
--- NOTE | 2017-01-20 17:40 | CONS ---
Date/Time of Note Date/Time of Note DATE: 01/20/17 TIME: 17:34 Assessment/Plan Assessment/Plan Chief Complaint/Hosp Course 81-year-old female with: #Pancreatic mass with liver lesions - consistent with high grade neuroendocrine tumor -patient's son was told the only treatment for her is high dose chemotherapy with cisplatin and etoposide -I spoke with patient's therapeutic riding instructor who stated patient would not be able to tolerate high dose chemotherapy -I spoke with the son and also stated that I did not think patient would be able to tolerate high dose chemotherapy -the family is going to consider their options #CBD dilatation -s/p stent placement -continue to trend T bili #pancreatitis -continue conservative management per primary team Problems: (1) Neuroendocrine carcinoma (2) Metastatic cancer Status: Chronic Consultation Date/Type/Reason Admit Date/Time Jan 13, 2017 at 02:01 Initial Consult Date 01/18/17 Type of Consultation: Oncology Reason for Consultation pancreatic neuroendocrine tumor Referring Provider: NASIMA PRICE 24 HR Interval Summary Free Text/Dictation no acute overnight events Exam/Review of Systems Vital Signs Vitals Vital Signs Date Time Temp Pulse Resp B/P Pulse Ox O2 Delivery O2 Flow Rate FiO2 01/20/17 07:00 97.4 85 20 180/80 97 01/19/17 19:49 Room Air 01/16/17 08:00 2.0 Intake and Output 01/19/17 01/19/17 01/20/17 15:00 23:00 07:00 Intake Total 100 ml 450 ml 1000 ml Output Total 600 ml 800 ml Balance 100 ml -150 ml 200 ml Exam Constitutional: alert, frail Psych: depression, nl mood/affect, no complaints Head: normocephalic Eyes: nl conjunctiva ENMT: nl external ears & nose Neck: non-tender, supple Respiratory: clear to auscultation, normal air movement Cardiovascular: regular rate and rhythm Gastrointestinal: soft Musculoskeletal: nl extremities to inspection, nl gait and stance Results Result Diagram: 01/20/17 0449 01/20/17 0449 Results 24 hrs Laboratory Tests Test 01/20/17 04:49 White Blood Count 9.7 Red Blood Count 4.35 Hemoglobin 12.8 Hematocrit 38.6 Mean Corpuscular Volume 88.7 Mean Corpuscular Hemoglobin 29.4 Mean Corpuscular Hemoglobin Concent 33.2 Red Cell Distribution Width 14.8 H Platelet Count 174 Mean Platelet Volume 11.0 H Neutrophils % Segmented Neutrophils % (Manual) 89 H Lymphocytes % Lymphocytes % (Manual) 4 L Monocytes % Monocytes % (Manual) 6 Eosinophils % Basophils % Basophils % (Manual) 1 Nucleated Red Blood Cells % 0.0 Neutrophils # (Manual) Absolute Lymphocytes (Manual) 0.3 L Lymphocytes # Monocytes # Absolute Monocytes (Manual) 0.5 Eosinophils # Basophils # Basophils # (Manual) 0.0 Nucleated Red Blood Cells # Platelet Estimate NORMAL Polychromasia 1+ Poikilocytosis 3+ Spherocytes 1+ Ovalocytes 1+ Sodium Level 134 L Potassium Level 3.4 L Chloride Level 106 Carbon Dioxide Level 20 L Anion Gap 11 Blood Urea Nitrogen 6 L Creatinine 0.46 Glucose Level 119 Calcium Level 7.8 L Magnesium Level 2.2 Medications Medications Current Medications Duloxetine HCl (Cymbalta) 30 mg DAILY PO Last administered on 01/20/17 11:42; Admin Dose 30 MG; Start 01/13/17 at 09:00 Fish Oil (Fish Oil) 2,000 mg BID PO Last administered on 01/20/17 11:43; Admin Dose 2,000 MG; Start 01/13/17 at 09:00 Quetiapine Fumarate (Seroquel) 25 mg Q4H PRN PO agitation Last administered on 01/19/17 17:00; Admin Dose 25 MG; Start 01/13/17 at 02:30 Haloperidol (Haldol) 1 mg Q4H PRN IM agitation Last administered on 01/19/17 21:54; Admin Dose 1 MG; Start 01/13/17 at 02:30 Acetaminophen (Tylenol Tab) 650 mg Q4H PRN PO pain/fever; Start 01/13/17 at 02: 30 Morphine Sulfate (morphine) 2 mg Q2H PRN IV pain Last administered on 17:11; Admin Dose 2 MG; Start 01/13/17 at 02:30 Ondansetron HCl (Zofran Inj) 4 mg Q4H PRN IV nausea Last administered on 01:05; Admin Dose 4 MG; Start 01/13/17 at 02:30 Isosorbide Mononitrate (Imdur) 30 mg DAILY PO Last administered on 01/20/17 11 :44; Admin Dose 30 MG; Start 01/15/17 at 09:00 Valsartan (Diovan) 160 mg BID PO Last administered on 01/20/17 11:43; Admin Dose 160 MG; Start 01/14/17 at 21:00 Morphine Sulfate (morphine) 1 mg Q4H PRN IV PAIN LEVEL 4-7 Last administered on 01/15/17 14:53; Admin Dose 1 MG; Start 01/15/17 at 15:00 Hydralazine HCl 10 mg 10 mg Q6H PRN IV SBP>160 Last administered on 01/19/17 07:33; Admin Dose 10 MG; Start 01/15/17 at 20:30 Dextrose/Sodium Chloride (D5-NS) 1,000 ml @ 100 mls/hr Q10H IV Last administered on 01/20/17 15:50; Admin Dose 100 MLS/HR; Start 01/16/17 at 11:00 Ciprofloxacin HCl (Ciloxan 0.3% Oph) 2 drop Q4 BOTH EYES Last administered on 17:11; Admin Dose 2 DROP; Start 01/16/17 at 17:30; Stop 01/23/17 at 13: 01 Megestrol Acetate (Megace Susp) 800 mg DAILY PO Last administered on 01/20/17 14:21; Admin Dose 800 MG; Start 01/20/17 at 14:00 Clonidine HCl (Catapres-Tts 1 Patch) 1 patch Q7D TRANSDERM Last administered on 01/20/17 17:11; Admin Dose 1 PATCH; Start 01/20/17 at 16:30 KAYKAY OJEDA M.D. Jan 20, 2017 17:40
[2017-01-20 20:00] VITALS: BP 152/78; RESP 19
[2017-01-20 20:27] VITALS: BP 106/64; RESP 20
[2017-01-20] MEDS: QUETIAPINE 25 MG TAB PO PRN (21:57)
[2017-01-21] MEDS: CIPROFLOXACIN 0.3% 2.5 ML OPH BOTH EYES SCH ×5 (01:00→17:01)
[2017-01-21] MEDS: DEXTROSE 5%-0.9% NACL 1,000 ML IV SCH ×2 (01:05→10:59)
[2017-01-21 02:00] VITALS: BP 148/72; RESP 19
[2017-01-21 05:29] LABS: PHOSPHORUS 2.7 mg/dl (2.5-4.9)
[2017-01-21 05:31] LABS: ALBUMIN 2.8 g/dl (3.3-4.9); ALBUMIN/GLOBULIN RATIO 1.03; CREATININE 0.48 mg/dl (0.44-1.00); POTASSIUM 3.5 mmol/L (3.5-5.1); TOTAL PROTEIN 5.5 g/dl (6.1-8.1)
[2017-01-21 08:00] VITALS: BP 143/65; RESP 19
[2017-01-21] MEDS: MEGESTROL (40 MG/ML) 10ML CUP PO SCH (09:30)
[2017-01-21] MEDS: QUETIAPINE 25 MG TAB PO PRN (09:31)
[2017-01-21] MEDS: DULOXETINE 30 MG CAP DR PO SCH (09:31)
[2017-01-21] MEDS: FISH OIL 1,000 MG CAP PO SCH (09:31)
[2017-01-21] MEDS: VALSARTAN 160 MG TAB PO SCH (09:31)
[2017-01-21] MEDS: ISOSORBIDE MONONITRATE(SR)30 MG TAB PO SCH (09:35)
--- NOTE | 2017-01-21 10:19 | PN ---
DATE: 01/20/2017 SUBJECTIVE DATA: The patient is alert. She is unable to communicate because of language problems. OBJECTIVE DATA: GENERAL: She is alert, not in distress. VITAL SIGNS: The blood pressure is 180/80, pulse is 85, temperature 97.4. LUNGS AND HEART: Unremarkable. ABDOMEN: Unremarkable. LABORATORY AND DIAGNOSTIC DATA: WBC is 9700, hemoglobin is 12.8. Potassium 3.4. The pathology report shows that the liver biopsy showed evidence of small-cell carcinoma, high-grade endocrine carcinoma. The immunoperoxidase stains are pending. 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 PLAN: At this time, management is as per oncologist and it appears that the patient is not a good candidate for high-grade chemotherapy. Dictated By: Cal Sampson MD /[email or web address]/frances /Document#: [id number] CC: Cal Sampson MD; Dr. Benoit;*[facility]*
--- NOTE | 2017-01-21 10:25 | CONS ---
Date/Time of Note Date/Time of Note DATE: 01/21/17 TIME: 10:21 Assessment/Plan Assessment/Plan Additional Assessment/Plan 1. Preoperative evaluation prior to ERCP for treatment of pancreatic duct obstruction, possible pancreatic cancer. Tolerated procedure well - will monitor clinically. STENT in place. 2. Electrocardiogram with nonspecific ST-T abnormalities and negative troponin times three since admit, and cath in 2013 revealing no significant obstructive disease. 3. Tachycardia consistent with sinus tachycardia at this time- some dehydration likely. BETTER NOW. OFF tele. 4. History of cardiac arrhythmias, in sinus tach at this time. 5. Abdominal pain. 6. Liver masses possibly secondary to metastatic disease- awaiting Bx results. Possible pancreatic carcinoma.Poor prognosis likely. I spoke with DR. Leary - I think family might not wish to have aggressive - will await BX results to delineate care. I had a long discussion with DR. 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 Cis-kokhanok regiment advised, very toxic. I spoke with son, explained toxic profile of chemo - family likely to agree to Hospice. 8. Increased lipase possibly secondary to obstruction of the duct. 9. Increased tumor markers. 10. Altered mental state. 11. HTN - on high side, will add clonidine patch. BETTER NOW. Consultation Date/Type/Reason Admit Date/Time Jan 13, 2017 at 02:01 Type of Consultation: Oncology Referring Provider: NASIMA PRICE 24 HR Interval Summary Free Text/Dictation I had a long discussion with DR. 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 Cis-kokhanok regiment advised, very toxic. I spoke with son, explained toxic profile of chemo - family likely to agree to Hospice. No Cp. No palpitations. ROS: No fever, no chills, no nausea, no vomiting, no diarrhea/constipation + recent weight changes No chest pain, no PND, no orthopnea better SOB No dizziness, blurred vision No thirst, no heat or cold intolerance Exam/Review of Systems Vital Signs Vitals Vital Signs Date Time Temp Pulse Resp B/P Pulse Ox O2 Delivery O2 Flow Rate FiO2 01/21/17 02:00 98.0 92 19 148/72 96 01/19/17 19:49 Room Air Intake and Output 01/20/17 01/20/17 01/21/17 15:00 23:00 07:00 Intake Total 1340 ml 1460 ml Output Total 350 ml 235 ml Balance 990 ml 1225 ml Exam General: WN/WD/NAD, AOx2 - better today HEENT: mildly icetric/atraumatic/EOMI (follow commands) NECK: JVD elevated, no thyromegaly Lymph: no lymphadenopathy HEART: regular with no S3, II/ systolic murmur at apex LUNGS: Coarse sounds ABD: soft, NT, ND, +BS : Intact Neuro: non focal SKIN: chronic changes EXT: trace edema Results Result Diagram: 01/20/179 01/21/17 0430 Results 24 hrs Laboratory Tests Test 01/21/17 04:30 Sodium Level 143 Potassium Level 3.5 Chloride Level 106 Carbon Dioxide Level 24 Anion Gap 17 H Blood Urea Nitrogen 6 L Creatinine 0.48 Glucose Level 129 Calcium Level 8.0 L Phosphorus Level 2.7 Magnesium Level 2.0 Total Bilirubin 1.0 Direct Bilirubin 0.00 Indirect Bilirubin 1.0 Aspartate Amino Transf (AST/SGOT) 97 H Alanine Aminotransferase (ALT/SGPT) 63 Alkaline Phosphatase 234 H Total Protein 5.5 L Albumin 2.8 L Globulin 2.70 Albumin/Globulin Ratio 1.03 Medications Medications Current Medications Duloxetine HCl (Cymbalta) 30 mg DAILY PO Last administered on 01/21/17 09:31; Admin Dose 30 MG; Start 01/13/17 at 09:00 Fish Oil (Fish Oil) 2,000 mg BID PO Last administered on 01/21/17 09:31; Admin Dose 2,000 MG; Start 01/13/17 at 09:00 Quetiapine Fumarate (Seroquel) 25 mg Q4H PRN PO agitation Last administered on 01/21/17 09:31; Admin Dose 25 MG; Start 01/13/17 at 02:30 Haloperidol (Haldol) 1 mg Q4H PRN IM agitation Last administered on 01/19/17 21:54; Admin Dose 1 MG; Start 01/13/17 at 02:30 Acetaminophen (Tylenol Tab) 650 mg Q4H PRN PO pain/fever; Start 01/13/17 at 02: 30 Morphine Sulfate (morphine) 2 mg Q2H PRN IV pain Last administered on 21:57; Admin Dose 2 MG; Start 01/13/17 at 02:30 Ondansetron HCl (Zofran Inj) 4 mg Q4H PRN IV nausea Last administered on 01:05; Admin Dose 4 MG; Start 01/13/17 at 02:30 Isosorbide Mononitrate (Imdur) 30 mg DAILY PO Last administered on 01/21/17 09 :35; Admin Dose 30 MG; Start 01/15/17 at 09:00 Valsartan (Diovan) 160 mg BID PO Last administered on 01/21/17 09:31; Admin Dose 160 MG; Start 01/14/17 at 21:00 Morphine Sulfate (morphine) 1 mg Q4H PRN IV PAIN LEVEL 4-7 Last administered on 01/15/17 14:53; Admin Dose 1 MG; Start 01/15/17 at 15:00 Hydralazine HCl 10 mg 10 mg Q6H PRN IV SBP>160 Last administered on 01/19/17 07:33; Admin Dose 10 MG; Start 01/15/17 at 20:30 Dextrose/Sodium Chloride (D5-NS) 1,000 ml @ 100 mls/hr Q10H IV Last administered on 01/21/17 01:05; Admin Dose 100 MLS/HR; Start 01/16/17 at 11:00 Ciprofloxacin HCl (Ciloxan 0.3% Oph) 2 drop Q4 BOTH EYES Last administered on 09:30; Admin Dose 2 DROP; Start 01/16/17 at 17:30; Stop 01/23/17 at 13: 01 Megestrol Acetate (Megace Susp) 800 mg DAILY PO Last administered on 01/21/17 09:30; Admin Dose 800 MG; Start 01/20/17 at 14:00 Clonidine HCl (Catapres-Tts 1 Patch) 1 patch Q7D TRANSDERM Last administered on 01/20/17 17:11; Admin Dose 1 PATCH; Start 01/20/17 at 16:30 WILL PATRICK MD Jan 21, 2017 10:25
[2017-01-21] MEDS: morphine 2 MG INJ IV PRN ×2 (10:56→15:25)
[2017-01-21 14:00] VITALS: BP 151/61; RESP 19
[2017-01-21] MEDS ORDERED: morphine LIQ (20 MG/ML PO SYG) PO PRN (16:00)
[2017-01-21] MEDS ORDERED: traMADol 50 MG TAB PO PRN (16:00)
--- NOTE | 2017-01-21 16:03 | PN ---
Date/Time of Note Date/Time of Note DATE: 01/21/17 TIME: 15:47 Assessment/Plan VTE Prophylaxis VTE Prophylaxis Intervention: SCD's Lines/Catheters IV Catheter Type (from [facility] Saline Lock Urinary Cath still in place: Yes Reason Cath still needed: other (indicate) (Discontinue) Assessment/Plan Assessment/Plan 81-year-old female with: 1. Pancreatic mass, liver mass likely metastatic disease consistent with pancreatic carcinoma, unfortunately no biopsy could be obtained during ERCP, patient does have a stent placed. 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 Mendez with also assistance from Dr. Horne, family not seeking any additional treatment at this point, they will seek for palliative care and hospice once at nursing home facility. Continue soft diet with supplements Discharged to nursing home facility today, appreciate assistance from case management. Continue comfort measures and pain management with plan for palliative care/ hospice evaluation at nursing home facility. 2. Dehydration: Better p.o. intake at least for medications today and also advancing to soft diet. DC IV fluids and Saez catheter 3. 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 Soft diet as tolerated. Pain control and comfort measures 4. Hypertension: Continue current medication as tolerated 5. Mild dementia: Likely slightly exacerbated currently with acute findings. Stable, cooperative Continue outpatient medication as tolerated. Monitor. Discharge to snf Prophylaxis: SCDs for DVT prophylaxis, Pepcid for GI prophylaxis Disposition: Discharge to nursing home facility today, further follow-up with palliative care and hospice at nursing home facility. Subjective 24 Hr Interval Summary Free Text/Dictation Patient remained stable hemodynamically, she is confused and mental status is a close to baseline unfortunately with dementia. Family had a discussion between family member and also with oncology Dr. Mendez and Dr. Horne who is a family friend and as of this morning they have opted for comfort measures and palliative care. Patient will be discharged to a nursing home facility with palliative care and hospice consult at the nursing home facility. Exam/Review of Systems Vital Signs Vitals Vital Signs Date Time Temp Pulse Resp B/P Pulse Ox O2 Delivery O2 Flow Rate FiO2 01/21/17 02:00 98.0 92 19 148/72 96 01/19/17 19:49 Room Air Intake and Output 01/20/17 01/20/17 01/21/17 15:00 23:00 07:00 Intake Total 1340 ml 1460 ml Output Total 350 ml 235 ml Balance 990 ml 1225 ml Exam Constitutional: alert, frail Respiratory: clear to auscultation, normal air movement Cardiovascular: nl pulses, regular rate and rhythm Gastrointestinal: nl liver, spleen, non-tender, soft Musculoskeletal: swelling (Anasarca noted) Extremities: normal pulses, other (Mild anasarca) Neurological: FURNACE FIRER II-XII intact, confused, lethargic Results Result Diagram: 01/20/17 0449 01/21/17 0430 Results 24 hrs Laboratory Tests Test 01/21/17 04:30 Sodium Level 143 Potassium Level 3.5 Chloride Level 106 Carbon Dioxide Level 24 Anion Gap 17 H Blood Urea Nitrogen 6 L Creatinine 0.48 Glucose Level 129 Calcium Level 8.0 L Phosphorus Level 2.7 Magnesium Level 2.0 Total Bilirubin 1.0 Direct Bilirubin 0.00 Indirect Bilirubin 1.0 Aspartate Amino Transf (AST/SGOT) 97 H Alanine Aminotransferase (ALT/SGPT) 63 Alkaline Phosphatase 234 H Total Protein 5.5 L Albumin 2.8 L Globulin 2.70 Albumin/Globulin Ratio 1.03 Medications Medications Current Medications Duloxetine HCl (Cymbalta) 30 mg DAILY PO Last administered on 01/21/17 09:31; Admin Dose 30 MG; Start 01/13/17 at 09:00 Fish Oil (Fish Oil) 2,000 mg BID PO Last administered on 01/21/17 09:31; Admin Dose 2,000 MG; Start 01/13/17 at 09:00 Quetiapine Fumarate (Seroquel) 25 mg Q4H PRN PO agitation Last administered on 01/21/17 09:31; Admin Dose 25 MG; Start 01/13/17 at 02:30 Haloperidol (Haldol) 1 mg Q4H PRN IM agitation Last administered on 01/19/17 21:54; Admin Dose 1 MG; Start 01/13/17 at 02:30 Acetaminophen (Tylenol Tab) 650 mg Q4H PRN PO pain/fever; Start 01/13/17 at 02: 30 Morphine Sulfate (morphine) 2 mg Q2H PRN IV pain Last administered on 15:25; Admin Dose 2 MG; Start 01/13/17 at 02:30 Ondansetron HCl (Zofran Inj) 4 mg Q4H PRN IV nausea Last administered on 01:05; Admin Dose 4 MG; Start 01/13/17 at 02:30 Isosorbide Mononitrate (Imdur) 30 mg DAILY PO Last administered on 01/21/17 09 :35; Admin Dose 30 MG; Start 01/15/17 at 09:00 Valsartan (Diovan) 160 mg BID PO Last administered on 01/21/17 09:31; Admin Dose 160 MG; Start 01/14/17 at 21:00 Morphine Sulfate (morphine) 1 mg Q4H PRN IV PAIN LEVEL 4-7 Last administered on 01/15/17 14:53; Admin Dose 1 MG; Start 01/15/17 at 15:00 Hydralazine HCl 10 mg 10 mg Q6H PRN IV SBP>160 Last administered on 01/19/17 07:33; Admin Dose 10 MG; Start 01/15/17 at 20:30 Dextrose/Sodium Chloride (D5-NS) 1,000 ml @ 100 mls/hr Q10H IV Last administered on 01/21/17 10:59; Admin Dose 100 MLS/HR; Start 01/16/17 at 11:00 Ciprofloxacin HCl (Ciloxan 0.3% Oph) 2 drop Q4 BOTH EYES Last administered on 13:13; Admin Dose 2 DROP; Start 01/16/17 at 17:30; Stop 01/23/17 at 13: 01 Megestrol Acetate (Megace Susp) 800 mg DAILY PO Last administered on 01/21/17 09:30; Admin Dose 800 MG; Start 01/20/17 at 14:00 Clonidine HCl (Catapres-Tts 1 Patch) 1 patch Q7D TRANSDERM Last administered on 01/20/17 17:11; Admin Dose 1 PATCH; Start 01/20/17 at 16:30 NASIMA PRICE Jan 21, 2017 15:57
--- NOTE | 2017-01-21 16:10 | PDOCDIS ---
Discharge Instructions CONDITION Patient Condition: Fair HOME CARE INSTRUCTIONS: Special Diet: Full to soft diet as tolerated ACTIVITY: Activity Restrictions: Slowly Increase Activity FOLLOW UP/APPOINTMENTS Follow-up Plan Follow-up with palliative/hospice evaluation at [facility] facility NASIMA PRICE Jan 21, 2017 16:10
== END 2017-01-21 18:00 | DRG 435 ==
LOC: E/R 19:43 → MS1 01-13 02:01
PROVIDERS: ADMIT Legal Medicine; ATTEND Legal Medicine
PROC: 0F758DZ Dilation of Right Hepatic Duct with Intraluminal Device, Via Natural or Artificial Opening Endoscopic (ICD-10-PCS; 2017-01-14)
PROC: 0F768DZ Dilation of Left Hepatic Duct with Intraluminal Device, Via Natural or Artificial Opening Endoscopic (ICD-10-PCS; principal; 2017-01-14 19:30)
PROC: 0FB13ZX Excision of Right Lobe Liver, Percutaneous Approach, Diagnostic (ICD-10-PCS; 2017-01-18)
DX: C25.9 Malignant neoplasm of pancreas, unspecified (principal); K85.90 Acute pancreatitis without necrosis or infection, unspecified; C78.7 Secondary malignant neoplasm of liver and intrahepatic bile duct; E86.0 Dehydration; K86.89 Other specified diseases of pancreas; K83.8 Other specified diseases of biliary tract; F03.90 Unspecified dementia, unspecified severity, without behavioral disturbance, psychotic disturbance, mood disturbance, and anxiety; K57.30 Diverticulosis of large intestine without perforation or abscess without bleeding; I10 Essential (primary) hypertension; I25.10 Atherosclerotic heart disease of native coronary artery without angina pectoris; I70.0 Atherosclerosis of aorta; E78.5 Hyperlipidemia, unspecified; E80.6 Other disorders of bilirubin metabolism; R00.0 Tachycardia, unspecified; R41.82 Altered mental status, unspecified; Z95.5 Presence of coronary angioplasty implant and graft; Z79.82 Long term (current) use of aspirin
CPT/HCPCS: 36415; 70450; 71010; 71250; 74177; 74181; 74330; 76705; 77012; 80048; 80053; 82105; 82150; 82378; 82550; 82553; 83605; 83690; 83735; 84100; 84484; 85025; 85610; 85730; 86301; 86304; 88307; 88313; 93005; 93306; 96361; 96374; 96375; C2617; J0360; J0690; J1100; J1630; J2060; J2250; J2270; J2370; J2405; J2765; J3010; J3480; J7030; J7042; Q9967